=== PATIENT | female | born 1940 | race Caucasian/White ===

== ENCOUNTER 2018-07-11 13:07 | Observation (INO) | payer MEDICARE, OTHER ==
[~2018-07-11 13:07] MED LIST: PHENYLEPHRINE HCL INJ/PF 10 MG/1 ML SDV ONE
[2018-07-11] MEDS ORDERED: ASPIRIN 81 MG TABLET, CHEWABLE PO ONE (13:53)
[2018-07-11] MEDS ORDERED: MAG HYDROX/AL HYDROX/SIMETH SUSP 30 ML UDCUP PO ONE (13:55)
[2018-07-11] MEDS ORDERED: METOCLOPRAMIDE HCL ORAL SOLN 10 MG/10 ML UDCUP PO ONE (13:55)
[2018-07-11] MEDS ORDERED: LIDOCAINE 2% VISCOUS SOLN 20 ML UDCUP PO ONE (13:55)
--- NOTE | 2018-07-11 13:59 | ER Document Report ---
ED Medical Screen (RME) - General Chief Complaint: Abdominal Pain Stated Complaint: ABDOMINAL PAIN Time Seen by Provider: 07/11/18 13:49 Mode of Arrival: Wheelchair Information source: Patient Notes: 78-year-old female presents emergency department with complaints of epigastric abdominal pain that started at 7 AM. She describes it as a sharp and stabbing sensation. No radiation. No alleviating or exacerbating factors. She is having associated nausea, vomiting. She denies any diarrhea, constipation, dysuria, hematuria, melena, hematochezia, fever, chills, cough, shortness of breath, chest pain. Patient has had a hysterectomy. She states that she has a history of hypertension, family history of coronary artery disease and she smokes. I have greeted and performed a rapid initial assessment of this patient. A comprehensive ED assessment and evaluation of the patient, analysis of test results and completion of the medical decision making process will be conducted by additional ED providers. PHYSICAL EXAMINATION: GENERAL: Well-appearing, well-nourished and in no acute distress. HEAD: Atraumatic, normocephalic. EYES: Pupils equal round extraocular movements intact, conjunctiva are normal. ENT: Nares patent NECK: Normal range of motion LUNGS: No respiratory distress Musculoskeletal: Normal range of motion TRAVEL OUTSIDE OF THE [place] IN LAST 30 DAYS: No - Related Data Allergies/Adverse Reactions: No Known Allergies Allergy (Unverified 07/11/18 13:10) Past Medical History - Social History Chew tobacco use (# tins/day): No Frequency of alcohol use: None Drug Abuse: None - Past Medical History Cardiac Medical History: Reports: Hx Hypertension Renal/ Medical History: Denies: Hx Peritoneal Dialysis Psychiatric Medical History: Reports: Hx Depression - anxiety Past Surgical History: Reports: Hx Abdominal Surgery - hernia repair, Hx Hysterectomy Physical Exam - Vital signs Vitals: Temp Pulse Resp BP Pulse Ox 97.6 F 77 20 187/83 H 100 07/11/18 13:13 07/11/18 13:13 07/11/18 13:13 07/11/18 13:13 07/11/18 13:13 Course - Vital Signs Vital signs: Temp Pulse Resp BP Pulse Ox 97.6 F 77 20 187/83 H 100 07/11/18 13:13 07/11/18 13:13 07/11/18 13:13 07/11/18 13:13 07/11/18 13:13
[2018-07-11 14:58] LABS: ABSOLUTE BASOPHILS # (AUTO) 0.1 10^3/uL (0.0-0.2); ABSOLUTE LYMPHOCYTES (AUTO) 1.2 10^3/uL (0.5-4.7); ABSOLUTE MONOCYTES (AUTO) 0.2 10^3/uL (0.1-1.4); ABSOLUTE NEUT (AUTO) 10.8 10^3/uL (1.7-8.2); BASOPHILS % (AUTO) 0.4 % (0-2); EOSINOPHILS % (AUTO) 0.3 % (0-6); HEMATOCRIT 45.2 % (36.0-47.0); HEMOGLOBIN 15.3 g/dL (12.0-15.5); LYMPHOCYTES % (AUTO) 9.7 % (13-45); MEAN CORPUSCULAR HEMOGLOBIN 33.1 pg (27.0-33.4); MEAN CORPUSCULAR HGB CONC 33.9 g/dL (32.0-36.0); MEAN CORPUSCULAR VOLUME 98 fl (80-97); MONOCYTES % (AUTO) 1.9 % (3-13); PLATELET COUNT 314 10^3/uL (150-450); RED BLOOD COUNT 4.63 10^6/uL (3.72-5.28); RED CELL DISTRIBUTION WIDTH 13.7 % (11.5-14.0); SEGMENTED NEUTROPHILS % (AUTO) 87.7 % (42-78); TOTAL CELLS COUNTED % (AUTO) 100 %; WHITE BLOOD COUNT 12.3 10^3/uL (4.0-10.5)
[2018-07-11 15:02] LABS: APPEARANCE,URINE SLIGHTLY-CLOUDY; BILIRUBIN,URINE NEGATIVE (NEGATIVE); COLOR,URINE YELLOW; GLUCOSE, URINE NEGATIVE (NEGATIVE); KETONES,URINE 20 mg/dL (NEGATIVE); LEUKOCYTE ESTERASE,URINE SMALL (NEGATIVE); NITRITE,URINE NEGATIVE (NEGATIVE); PROTEIN,URINE NEGATIVE (NEGATIVE); URINE SPECIFIC GRAVITY 1.021; UROBILINOGEN,URINE NEGATIVE mg/dL (<2.0)
--- NOTE | 2018-07-11 15:12 | ER Document Report ---
ED General - General Mode of Arrival: Wheelchair TRAVEL OUTSIDE OF THE [place] IN LAST 30 DAYS: No <FAYE ALBARRAN - Last Filed: 07/11/18 19:05> <SHIVA CROWDER - Last Filed: 07/11/18 21:36> - General Chief Complaint: Abdominal Pain Stated Complaint: ABDOMINAL PAIN Time Seen by Provider: 07/11/18 13:49 Primary Care Provider: GIUSEPPE GENAO PA-C [Primary Care Provider] - Follow up as needed Notes: RME Provider note: 78-year-old female presents emergency department with complaints of epigastric abdominal pain that started at 7 AM. She describes it as a sharp and stabbing sensation. No radiation. No alleviating or exacerbating factors. She is having associated nausea, vomiting. She denies any diarrhea, constipation, dy suria, hematuria, melena, hematochezia, fever, chills, cough, shortness of breath, chest pain. Patient has had a hysterectomy. She states that she has a history of hypertension, family history of coronary artery disease and she smokes. MY HPI: Patient has been treated in the emergency department with a GI cocktail. Upon my HPI patient states she is currently pain-free. When I asked her about the pain she did have she states it was more periumbilical and started this morning. States she vomited x4. Patient states that her last bowel movement was yesterday. States sometimes she does have history of constipation. Patient does denying any fever, upper respiratory symptoms at this time. Past medical history: Hypertension Medications: Lisinopril, citalopram Allergies: Aspirin Surgical history: Hysterectomy, inguinal hernia repair 2014 (FAYE ALBARRAN) - Related Data Allergies/Adverse Reactions: No Known Allergies Allergy (Verified 07/11/18 14:47) Past Medical History - General Information source: Patient - Social History Smoking Status: Current Every Day Smoker Chew tobacco use (# tins/day): No Frequency of alcohol use: None Drug Abuse: None Family History: Reviewed & Not Pertinent Patient has suicidal ideation: No Patient has homicidal ideation: No - Past Medical History Cardiac Medical History: Reports: Hx Hypertension Renal/ Medical History: Denies: Hx Peritoneal Dialysis Psychiatric Medical History: Reports: Hx Depression - anxiety Past Surgical History: Reports: Hx Abdominal Surgery - hernia repair, Hx Hysterectomy <ABIMAEL ALBARRANAIDELUKE - Last Filed: 07/11/18 19:05> Review of Systems - Review of Systems Constitutional: No symptoms reported EENT: No symptoms reported Cardiovascular: No symptoms reported Respiratory: No symptoms reported Gastrointestinal: See HPI Genitourinary: denies: Burning, Dysuria, Frequency Female Genitourinary: No symptoms reported Musculoskeletal: No symptoms reported Skin: No symptoms reported Hematologic/Lymphatic: No symptoms reported Neurological/Psychological: No symptoms reported <ABDI ALBARRANALMALUKE - Last Filed: 07/11/18 19:05> Physical Exam <ABIMAEL ALBARRANAIDELUKE - Last Filed: 07/11/18 19:05> - Vital signs Vitals: Temp Pulse Resp BP Pulse Ox 97.6 F 77 20 187/83 H 100 07/11/18 13:13 07/11/18 13:13 07/11/18 13:13 07/11/18 13:13 07/11/18 13:13 - Notes Notes: GENERAL: Alert, interacts well. No acute distress. HEAD: Normocephalic, atraumatic. EYES: Pupils equal, round, and reactive to light. Extraocular movements intact. ENT: Oral mucosa moist, tongue midline. NECK: Full range of motion. Supple. Trachea midline. LUNGS: Clear to auscultation bilaterally, no wheezes, rales, or rhonchi. No respiratory distress. HEART: Regular rate and rhythm. No murmur ABDOMEN: Soft, Non-distended. Bowel sounds present in all 4 quadrants. No Smalls sign noted, patient does have McBurney's point tenderness noted on examination. Patient also has some generalized periumbilical abdominal pain upon deep palpation. EXTREMITIES: Moves all 4 extremities spontaneously. No edema, normal radial and dorsalis pedis pulses bilaterally. No cyanosis. BACK: no cervical, thoracic, lumbar midline tenderness. No saddle anesthesia, normal distal neurovascular exam. No CVA tenderness noted bilaterally NEUROLOGICAL: Alert and oriented x3. Normal speech. cranial nerves II through XII grossly intact PSYCH: Normal affect, normal mood. SKIN: Warm, dry, normal turgor. No rashes or lesions noted. (FAYE ALBARRAN) Course - Laboratory Result Diagrams: 07/11/18 14:31 07/11/18 14:31 <FAYE ALBARRAN - Last Filed: 07/11/18 19:05> - Laboratory Result Diagrams: 07/11/18 14:31 07/11/18 14:31 <SHIVA CROWDER - Last Filed: 07/11/18 21:36> - Re-evaluation Re-evalutation: 07/11/18 15:14 Patient's CBC does show leukocytosis of 12.3 could be due to her vomiting. Patient's urine shows no signs of infection but does have hematuria. Patient CMP has not been resulted yet. Patient states without any touching her abdomen her pain is completely gone. Patient states she does have increased pain when I palpate periumbilical into the right lower quadrant. Due to this I will order a CT with oral and IV contrast. Currently awaiting CMP results and CT results. 07/11/18 19:05 Patient's CMP shows no signs of electrolyte abnormalities and her urine shows no signs of infection. Patient recently got her CT but we are awaiting official results. Patient has no longer vomited since Zofran administration in the emergency department, continues to be pain-free unless palpated her right lower quadrant. Patient care and report transferred to Shiva LOVE at bedside. (FAYE ALBARRAN) 07/11/18 19:40 CT of the abdomen and pelvis with IV and oral contrast indicating a right inguinal hernia with incarceration and obstruction of the small bowel. Patient does have tenderness in the general abdomen, slightly worse on the right, however her abdomen is not rigid and she is nontoxic in appearance. I am told that she did vomit contrast after she started drinking it. I called and spoke with Dr. Pacheco, general surgery, he is on his way to evaluate the patient. He recommends continuing NPO and giving additional IV fluids. I discussed with patient and family at bedside. (SHIVA CROWDER) - Vital Signs Vital signs: Temp Pulse Resp BP Pulse Ox 98.0 F 77 20 187/93 H 96 07/11/18 19:00 07/11/18 13:13 07/11/18 21:05 07/11/18 21:05 07/11/18 21:05 - Laboratory Laboratory results interpreted by me: 07/11/18 07/11/18 07/11/18 14:31 14:31 14:31 WBC 12.3 H MCV 98 H Seg Neutrophils % 87.7 H Lymphocytes % 9.7 L Monocytes % 1.9 L Absolute Neutrophils 10.8 H AST 39 H Urine Ketones 20 H Urine Blood MODERATE H Ur Leukocyte Esterase SMALL H Discharge <FAYE ALBARRAN - Last Filed: 07/11/18 19:05> - Discharge Admitting Provider: Surgicalist Unit Admitted: OR <SHVIA CROWDER - Last Filed: 07/11/18 21:36> - Discharge Clinical Impression: Incarcerated inguinal hernia Vomiting Qualifiers: Vomiting type: unspecified Vomiting Intractability: unspecified Nausea presence: with nausea Qualified Code(s): R11.2 - Nausea with vomiting, unsp ecified Abdominal pain Qualifiers: Abdominal location: generalized Qualified Code(s): R10.84 - Generalized abdominal pain Condition: Serious Disposition: ADMITTED INPATIENT Referrals: GIUSEPPE GENAO PA-C [Primary Care Provider] - Follow up as needed
--- NOTE | 2018-07-11 15:16 | RADIOLOGY REPORT (SQ) ---
EXAM DESCRIPTION: CHEST SINGLE VIEW COMPLETED DATE/TIME: 07/11/2018 2:53 pm REASON FOR STUDY: chest pain COMPARISON: None. NUMBER OF VIEWS: One view. TECHNIQUE: Single frontal radiographic view of the chest acquired. LIMITATIONS: None. FINDINGS: LUNGS AND PLEURA: No opacities, masses or pneumothorax. No pleural effusion. Attenuated bl ood vessels and flattened sergio-diaphragms. MEDIASTINUM AND HILAR STRUCTURES: No masses. Contour normal. HEART AND VASCULAR STRUCTURES: Heart normal in size. Normal vasculature. BONES: No acute findings. HARDWARE: None in the chest. OTHER: No other significant finding. IMPRESSION: COPD. NO ACUTE RADIOGRAPHIC FINDING IN THE CHEST. TECHNICAL DOCUMENTATION: JOB ID: [id number] [employer]- All Rights Reserved Reading location - IP/workstation name: [email or web address]
[2018-07-11 15:19] LABS: ALANINE AMINOTRANSFERASE 21 U/L (9-52); ALKALINE PHOSPHATASE 83 U/L (38-126); ANION GAP 9 (5-19); ASPARTATE AMINO TRANSFERASE 39 U/L (14-36); BILIRUBIN,DIRECT 0.3 mg/dL (0.0-0.4); BILIRUBIN,TOTAL 0.6 mg/dL (0.2-1.3); BLOOD UREA NITROGEN 15 mg/dL (7-20); CALCIUM 9.5 mg/dL (8.4-10.2); CARBON DIOXIDE 30 mmol/L (22-30); CHLORIDE 101 mmol/L (98-107); GLUCOSE 104 mg/dL (75-110); LIPASE 25.6 U/L (23-300); POTASSIUM 4.8 mmol/L (3.6-5.0); SODIUM 140.1 mmol/L (137-145); TOTAL PROTEIN 8.1 g/dL (6.3-8.2)
[2018-07-11] MEDS ORDERED: ONDANSETRON HCL INJ/PF 4 MG/2 ML SDV IV ONE (16:47)
--- NOTE | 2018-07-11 19:32 | RADIOLOGY REPORT (SQ) ---
EXAM DESCRIPTION: CT ABD/PELVIS WITH IV ORAL COMPLETED DATE/TIME: 07/11/2018 6:46 pm REASON FOR STUDY: RLQ pain, periumbilical pain COMPARISON: None. TECHNIQUE: CT scan of the abdomen and pelvis performed using helical scanning technique with dynamic intravenous contrast injection. Patient drank oral contrast. Images reviewed with lung, soft tissue , and bone windows. Reconstructed coronal and sagittal MPR images reviewed. Delayed images for evalua tion of the urinary system also acquired. All images stored on PACS. All CT scanners at this facility use dose modulation, iterative reconstruction, and/or weight based d osing when appropriate to reduce radiation dose to as low as reasonably achievable (ALARA). [facility]: Dose Right [facility]: CareDose [facility]: Dose Right [facility]: Teradose 4D [facility]: [employer] CONTRAST TYPE AND DOSE: contrast/concentration: Isovue 350.00 mg/ml; Total Contrast Delivered: 55.0 ml; Total Saline Delivered: 65.0 ml RENAL FUNCTION: Creatinine 0.7 RADIATION DOSE: CT Rad equipment meets quality standard of care and radiation dose reduction techniq ues were employed. CTDIvol: 4.8 - 4.9 mGy. DLP: 412 mGy-cm.. LIMITATIONS: None. FINDINGS: In the right lower quadrant along the inguinal canal, an incarcerated hernia is present co ntaining an obstructed loop of small bowel. More proximal small bowel obstruction is present with di lated stomach and proximal and mid small bowel loops. This report was called to Dr. Zavala [facility]. LOWER CHEST: No significant findings. No nodules or infiltrates. LIVER: Normal size. No masses. No dilated ducts. SPLEEN: Normal size. No focal lesions. PANCREAS: No masses. No significant calcifications. No adjacent inflammation or peripancreatic fluid collections. Pancreatic duct not dilated. GALLBLADDER: No identified stones by CT criteria. No inflammatory changes to suggest cholecystitis. ADRENAL GLANDS: No significant masses or asymmetry. RIGHT KIDNEY AND URETER: No solid masses. No significant calcifications. No hydronephrosis or hyd roureter. LEFT KIDNEY AND URETER: No solid masses. No significant calcifications. No hydronephrosis or hydr oureter. AORTA AND VESSELS: No aneurysm. No dissection. Heavily calcified visceral artery origins RETROPERITONEUM: No retroperitoneal adenopathy, hemorrhage or masses. BOWEL AND PERITONEAL CAVITY: Incarcerated right inguinal hernia with more proximal small bowel obstru ction. This is best shown on coronal images 10-19. Scattered colonic diverticuli without CT signs o f acute diverticulitis APPENDIX: Normal. PELVIS: No mass. No free fluid. Normal bladder. Post hysterectomy ABDOMINAL WALL: Right inguinal hernia with incarcerated loop of small bowel. BONES: No significant or acute findings. OTHER: No other significant finding. IMPRESSION: Right inguinal hernia with incarcerated small bowel loop causing small bowel obstruction . Report called to the emergency room attending physician. TECHNICAL DOCUMENTATION: JOB ID: [id number] Quality ID # [id number]: Final reports with documentation of one or more dose reduction techniques (e.g., Au tomated exposure control, adjustment of the mA and/or kV according to patient size, use of iterative reconstruction technique) 2010 [employer]- All Rights Reserved Reading location - IP/workstation name: [email or web address]
[2018-07-11] MEDS ORDERED: NORMAL SALINE 1000 ML 1,000 ML IV ONE (19:39)
[2018-07-11] MEDS ORDERED: NORMAL SALINE 1000 ML 1,000 ML IV PRN (19:41)
--- NOTE | 2018-07-11 21:41 | PDOC H&P ---
History of Present Illness Admission Date/PCP: GIUSEPPE GENAO PA-C Patient complains of: Abdominal pain nausea vomiting History of Present Illness: DEB GILL is a 78 year old female Seen in the emergency department via ground rescue complaining of abdominal pain periumbilical nausea and vomiting. Patient was given a GI cocktail with clinical improvement. She then started having nausea and vomiting again had a CT scan of the abdomen pelvis which showed an incarcerated right inguinal hernia. The patient then had a physical examination which confirmed an incarcerated, reducible right inguinal hernia. Surgery was consulted she was advised admission for definitive management According the patient she has had a right inguinal hernia for months. This was diagnosed by KATE Brownlee, in [place], [place]; she has a history of previous operative repair right inguinal hernia in [facility]. CT scan of the abdomen and pelvis shows a right inguinal hernia, no free air, no free fluid, atherosclerotic disease, possible small bowel obstruction secondary to hernia. Past Medical History Past Medical History: Hypertension, emphysema, smoking abuse Cardiac Medical History: Reports: Hypertension Psychiatric Medical History: Reports: Depression - anxiety Past Surgical History Past Surgical History: Total abdominal hysterectomy; right inguinal hernia repair Past Surgical History: Reports: Hysterectomy Social History Smoking Status: Current Every Day Smoker Frequency of Alcohol Use: None Hx Recreational Drug Use: No Drugs: None Family History Family History: Reviewed & Not Pertinent Parental Family History Reviewed: Yes Children Family History Reviewed: Yes Sibling(s) Family History Reviewed.: Yes Medication/Allergy Home Medications: Aspirin [Ecotrin] 81 mg PO MOWE@1000 07/11/18 Citalopram Hydrobromide [Celexa 40 mg Tablet] 40 mg PO DAILY 07/11/18 Ramipril [Altace 10 mg Capsule] 10 mg PO DAILY 07/11/18 Allergies/Adverse Reactions: No Known Allergies Allergy (Verified 07/11/18 14:47) Review of Systems Constitutional: PRESENT: as per HPI Eyes: ABSENT: visual disturbances Ears: ABSENT: hearing changes Cardiovascular: PRESENT: as per HPI Gastrointestinal: PRESENT: as per HPI Genitourinary: PRESENT: as per HPI Musculoskeletal: ABSENT: joint swelling Integumentary: ABSENT: rash, wounds Neurological: ABSENT: abnormal gait, abnormal speech, confusion, dizziness, focal weakness, syncope Physical Exam Vital Signs: Temp Pulse Resp BP Pulse Ox 98.0 F 77 20 187/93 H 96 07/11/18 19:00 07/11/18 13:13 07/11/18 21:05 07/11/18 21:05 07/11/18 21:05 Intake & Output 07/10/18 07/11/18 07/12/18 06:59 06:59 06:59 Intake Total 1999 Balance 1999 Weight 47.7 kg General appearance: PRESENT: no acute distress Head exam: PRESENT: normocephalic Mouth exam: PRESENT: dry mucosa Neck exam: PRESENT: full ROM Respiratory exam: PRESENT: rales Cardiovascular exam: PRESENT: RRR Pulses: PRESENT: normal carotid pulses, normal radial pulses, normal femoral pulses GI/Abdominal exam: PRESENT: other - Soft nontender no peritoneal signs no rigidity Right inguinal hernia, irreducible after prolonged compression by Dr. Pacheco at bedside. Overlying skin viable Psychiatric exam: PRESENT: anxious Results Laboratory Results: 07/11/18 14:31 07/11/18 14:31 07/11/18 07/11/18 07/11/18 14:31 14:31 14:31 WBC 12.3 H RBC 4.63 Hgb 15.3 Hct 45.2 MCV 98 H MCH 33.1 MCHC 33.9 RDW 13.7 Plt Count 314 Seg Neutrophils % 87.7 H Lymphocytes % 9.7 L Monocytes % 1.9 L Eosinophils % 0.3 Basophils % 0.4 Absolute Neutrophils 10.8 H Absolute Lymphocytes 1.2 Absolute Monocytes 0.2 Absolute Eosinophils 0.0 Absolute Basophils 0.1 Sodium 140.1 Potassium 4.8 Chloride 101 Carbon Dioxide 30 Anion Gap 9 BUN 15 Creatinine 0.65 Est GFR ( Amer) > 60 Est GFR (Non-Af Amer) > 60 Glucose 104 Calcium 9.5 Total Bilirubin 0.6 AST 39 H ALT 21 Alkaline Phosphatase 83 Total Protein 8.1 Albumin 5.0 Lipase 25.6 Urine Color YELLOW Urine Appearance SLIGHTLY-CLOUDY Urine pH 6.0 Ur Specific [place] 1.021 Urine Protein NEGATIVE Urine Glucose (UA) NEGATIVE Urine Ketones 20 H Urine Blood MODERATE H Urine Nitrite NEGATIVE Ur Leukocyte Esterase SMALL H Urine WBC (Auto) 5 Urine RBC (Auto) 28 07/11/18 07/11/18 14:31 18:45 Troponin I < 0.012 0.048 Impressions: Abdomen/Pelvis CT 07/11/18 00:00 IMPRESSION: Right inguinal hernia with incarcerated small bowel loop causing small bowel obstruction. Report called to the emergency room attending physician. Chest X-Ray 07/11/18 13:54 IMPRESSION: COPD. NO ACUTE RADIOGRAPHIC FINDING IN THE CHEST. Assessment & Plan - Diagnosis (1) Incarcerated inguinal hernia Is this a current diagnosis for this admission?: Yes Plan: Impression: Symptomatic, partially obstructing incarcerated right inguinal hernia; unrelieved by attempts at bedside reduction; warrants operative repair Recommendations: 1. Admit, IV fluids, n.p.o., taken to the operating room for right inguinal exploration, operative repair, possible small bowel resection, possible exploratory laparotomy. 2. Patient at risk for postoperative respiratory issues due to COPD, chronic smoking abuse. (2) COPD (chronic obstructive pulmonary disease) Is this a current diagnosis for this admission?: Yes (3) Smoker Is this a current diagnosis for this admission?: Yes (4) Abdominal pain Qualifiers: Abdominal location: generalized Qualified Code(s): R10.84 - Generalized abdominal pain Is this a current diagnosis for this admission?: Yes - Time Time Spent: 30 to 50 Minutes Critical Time spent with patient: Less than 15 minutes Medications reviewed and adjusted accordingly: Yes Anticipated discharge: Home - Inpatient Certification Based on my medical assessment, after consideration of the patient's comorbidities, presenting symptoms, or acuity I expect that the services needed warrant INPATIENT care.: Yes Medical Necessity: Need For IV Fluids, Need for Pain Control, Need for IV Antibiotics, Need for Surgery
[2018-07-11] MEDS ORDERED: MIDAZOLAM 2 MG/2 ML INJ ONE (21:54)
[2018-07-11] MEDS ORDERED: DEXAMETHASONE SOD PHOSPHATE INJ 4 MG/1 ML VIAL ONE (21:54)
[2018-07-11] MEDS ORDERED: ONDANSETRON HCL INJ/PF 4 MG/2 ML SDV ONE (21:54)
[2018-07-11] MEDS ORDERED: EPHEDRINE SULFATE INJ 50 MG/1 ML AMPULE ONE (21:54)
[2018-07-11] MEDS ORDERED: FENTANYL CITRATE INJ/PF 100 MCG/2 ML AMPUL ONE (21:54)
[2018-07-11] MEDS ORDERED: PROPOFOL INJ 200 MG/20 ML VIAL IV ONE (21:55)
[2018-07-11] MEDS ORDERED: ACETAMINOPHEN 1,000 MG/100 ML RTUPB IV ONE (21:55)
[2018-07-11] MEDS ORDERED: MORPHINE SULFATE 10 MG/ML INJ ONE (21:55)
[2018-07-11] MEDS ORDERED: BUPIVACAINE INJ/PF LIPOSOME/PF 266 MG/20 ML SDV ONE (22:25)
[2018-07-11] MEDS ORDERED: BUPIVACAINE HCL 0.25 % INJ/PF (2.5 MG/1 ML) 30 ML VIAL ONE (22:25)
[2018-07-11] MEDS: CEFAZOLIN 1 GM/D5W RTU 1 GM/50 ML RTUPB IV SCH (22:31)
[2018-07-11] MEDS: RINGERS SOLUTION,LACTATED 1,000 ML IV PRN (22:31)
--- NOTE | 2018-07-11 23:23 | EKG REPORT ---
SEVERITY:- NORMAL ECG - SINUS RHYTHM : Confirmed by: Adela Bradley MD 11-Jul-2018 23:22:29
[2018-07-11] MEDS ORDERED: DIPHENHYDRAMINE HCL 50 MG/ML VIAL IV PRN (23:29)
[2018-07-11] MEDS ORDERED: PROMETHAZINE HCL INJ 25 MG/1 ML VIAL IV PRN ×2 (23:29)
[2018-07-11] MEDS ORDERED: MEPERIDINE HCL/PF INJ 25 MG/1 ML DISP.SYRIN IV PRN (23:29)
[2018-07-11] MEDS ORDERED: ONDANSETRON HCL INJ/PF 4 MG/2 ML SDV IV PRN (23:29)
[2018-07-11] MEDS ORDERED: OXYCODONE-ACETAMINOPHEN 5-325 MG TABLET PO PRN ×2 (23:29)
[2018-07-11] MEDS ORDERED: MORPHINE SULFATE 10 MG/ML INJ IV PRN (23:29)
[2018-07-11] MEDS ORDERED: FENTANYL CITRATE INJ/PF 100 MCG/2 ML AMPUL IV PRN ×3 (23:29)
--- NOTE | 2018-07-12 00:19 | Operative Report ---
Operative Report DATE OF SURGERY: 07/12/18 PREOPERATIVE DIAGNOSIS: Incarcerated right inguinal hernia POSTOPERATIVE DIAGNOSIS: Incarcerated right femoral hernia with ischemic loop of small bowel OPERATION: 1. Operative reduction of right incarcerated femoral hernia. 2. Repair of right common femoral vein. 3. Repair of right femoral hernia with medium Bard PerFix plug SURGEON: BOO OROZCO ANESTHESIA: Spinal TISSUE REMOVED OR ALTERED: None COMPLICATIONS: See below INTRAOPERATIVE FINDINGS: See below PROCEDURE: Patient was taken to the preop holding area the main operating room where spinal anesthesia was [place]. Patient is placed in the right side down left side up position initially then supine. The abdomen and groins were prepped and draped in sterile fashion. Surgical plan surgical timeout conducted. The skin overlying the nonreducible hernia was anesthetized with 1% plain lidocaine. Approximately 6 cm incision was made overlying the palpable mass. Subcutaneous tissue was divided with scissors. We got around the mass circumferentially. The mass was essentially an incarcerated loop of ischemic small bowel. I opened up the fascia medially and laterally. While opening of the fascia laterally, I immediately got into venous bleeding. Direct pressure was held, and the hernia contents reduced into the peritoneal cavity. The incarcerated sac peritoneal lining had been opened releasing the loop of small bowel into the peritoneal cavity. We extended our incision by approximately centimeter got adequate exposure and identified the source of the venous oozing which was a rent in the right common femoral vein. We applied vascular clamps underneath the vein, and closed the vein longitudinally with 4-0 Prolene suture. This controlled the hemorrhage. The right common femoral artery was in good condition. We observe the repair for some period of time and was felt to be stable. I now brought the redundant peritoneal lining into the open wound, and then explored the peritoneal cavity using retractors. I brought the loop of small bowel that the been incarcerated and it retracted into the peritoneal cavity back out of the peritoneal cavity. It had an area of hemorrhagic injection in the wall. It was peristalsing. We warmed it up and observed it for approximately 20 minutes and felt that it was a viable and worth retaining. I did not feel a bowel resection was necessary. The loop of bowel was returned the peritoneal cavity I closed the peritoneum with a pursestring 2-0 Vicryl suture, amputating the redundant portions of the hernia sac. We now had the right femoral hernia defect exposed. We placed a inverted Bard PerFix plug into the defect and sewed it to the surrounding fascia medially anteriorly posteriorly laterally with 2-0 PDS suture. We were careful not to compromise the femoral artery the femoral vein. I now closed the Darrell's fascia overlying the prosthesis, the skin with 3-0 Vicryl and Dermabond glue. Compression dressing applied. Patient taught procedure well. She was taken recovery in stable condition.
[2018-07-12] MEDS ORDERED: ONDANSETRON HCL INJ/PF 4 MG/2 ML SDV IV PRN (00:20)
[2018-07-12] MEDS ORDERED: KETOROLAC TROMETHAMINE INJ/PF 30 MG/1 ML SDV IV PRN (00:20)
[2018-07-12] MEDS ORDERED: KETOROLAC TROMETHAMINE 10 MG TABLET PO PRN (00:20)
[2018-07-12] MEDS: RINGERS SOLUTION,LACTATED 1,000 ML IV PRN (03:02)
[2018-07-12] MEDS: CEFAZOLIN 1 GM/D5W RTU 1 GM/50 ML RTUPB IV SCH ×2 (05:03→13:38)
--- NOTE | 2018-07-12 18:14 | PDOC DISCHARGE SUMMARY ---
General - Admit/Disc Date/PCP Admission Date/Primary Care Provider: 07/11/18 21:49 GIUSEPPE GENAO PA-C Discharge Date: 07/12/18 - Discharge Diagnosis (1) Incarcerated femoral hernia Is this a current diagnosis for this admission?: Yes - Additional Information Resuscitation Status: Full Code Discharge Diet: As Tolerated Discharge Activity: No Lifting Over 10 Pounds Home Medications: Aspirin [Ecotrin] 81 mg PO MOWE@1000 07/11/18 Citalopram Hydrobromide [Celexa 40 mg Tablet] 40 mg PO DAILY 07/11/18 Ramipril [Altace 10 mg Capsule] 10 mg PO DAILY 07/11/18 History of Present Illness History of Present Illness: DEB GILL is a 78 year old female with an incarcerated femoral hernia. She presented to the hospital and was taken to the operating room for definitive surgical care. Hospital Course Hospital Course: The patient was taken to the operating room on 07/11/2018 where open femoral hernia repair was undertaken. The patient did very well from this operation. She began ambulating, tolerating a diet, and by postoperative day 1 her pain was controlled well with oral medications. At this time it was felt that the patient had reached maximal hospital benefit and was fit for discharge. Physical Exam Vital Signs: Temp Pulse Resp BP Pulse Ox 99.3 F 91 18 115/57 L 99 07/12/18 15:32 07/12/18 15:32 07/12/18 15:32 07/12/18 15:32 07/12/18 15:32 Intake & Output 07/11/18 07/12/18 07/13/18 06:59 06:59 06:59 Intake Total 4928 50 Output Total 600 Balance 4328 50 Weight 54.4 kg Results Laboratory Results: 07/11/18 14:31 07/11/18 14:31 07/11/18 21:17 Lactic Acid 1.4 07/11/18 14:31 Clean Catch Midstream Urine Culture - Final Mixed Urogenital Suzanne 07/11/18 07/11/18 14:31 18:45 Troponin I < 0.012 0.048 Impressions: Abdomen/Pelvis CT 07/11/18 00:00 IMPRESSION: Right inguinal hernia with incarcerated small bowel loop causing s mall bowel obstruction. Report called to the emergency room attending physician. Chest X-Ray 07/11/18 13:54 IMPRESSION: COPD. NO ACUTE RADIOGRAPHIC FINDING IN THE CHEST. Qualifiers - * PATIENT BEING DISCHARGED WITH ANY OF THE FOLLOWING DIAGNOSIS: No Plan Discharge Plan: Discharge home. Diet as tolerated. Activity: No lifting greater than 10 pounds x 6 weeks. Follow-up with [facility] in 7-10 days. Gibson 10/325 mg p.o. every 6 hours as needed for pain. Okay to shower tomorrow. No tub baths or swimming pools times 2 weeks. Time Spent: Less than 30 Minutes
[2018-07-12 18:29] VITALS: BP 105/44
== END 2018-07-12 19:26 | disposition home or self-care (01) ==
LOC: ER 13:07 → EH 21:49 → INTOOBSV 21:49 → 3S 07-12 01:20
PROVIDERS: ATTEND Surgery
PROC: 0YQ70ZZ Repair Right Femoral Region, Open Approach (ICD-10-PCS; principal; 2018-07-12)
PROC: 06QM0ZZ Repair Right Femoral Vein, Open Approach (ICD-10-PCS; 2018-07-12)
DX: K41.30 Unilateral femoral hernia, with obstruction, without gangrene, not specified as recurrent (principal); I97.51 Accidental puncture and laceration of a circulatory system organ or structure during a circulatory system procedure; Y83.8 Other surgical procedures as the cause of abnormal reaction of the patient, or of later complication, without mention of misadventure at the time of the procedure; I25.10 Atherosclerotic heart disease of native coronary artery without angina pectoris; J44.9 Chronic obstructive pulmonary disease, unspecified; F17.200 Nicotine dependence, unspecified, uncomplicated; R10.84 Generalized abdominal pain; I10 Essential (primary) hypertension; R31.9 Hematuria, unspecified; Z90.710 Acquired absence of both cervix and uterus; Z79.82 Long term (current) use of aspirin; Z79.899 Other long term (current) drug therapy; Z98.890 Other specified postprocedural states
CPT/HCPCS: 93005; 99285; 96361; 96374; 36415; 87086; 83605; 83690; 85025; 80053; 81001; 84484; 71045; 74177; 93010; 49553; 35226; C1781; J2250; J0690 ×2; J1100; J3490 ×2; J3010; J1885; A9270; J2370; J2405; J7030; J7120 ×2; J2704; J0131; 830; C9290; J2270

== ENCOUNTER 2018-07-28 23:32 | Observation (INO) | payer MEDICARE, OTHER ==
[2018-07-29] MEDS ORDERED: MORPHINE SULFATE 10 MG/ML INJ IV ONE (00:17)
[2018-07-29] MEDS ORDERED: ONDANSETRON HCL INJ/PF 4 MG/2 ML SDV IV ONE (00:17)
[2018-07-29] MEDS ORDERED: NORMAL SALINE 500 ML IV ONE ×2 (00:17→01:02)
--- NOTE | 2018-07-29 00:21 | ER Document Report ---
ED GI/ - General Chief Complaint: Lower Abdominal Pain Stated Complaint: ABDOMINAL PAIN Time Seen by Provider: 07/29/18 00:06 Notes: Patient is a 78-year-old female, status post right incarcerated inguinal hernia repair on 07/11/[address] Pacheco, that comes to the emergency department for chief complaint of mid to lower abdominal pain and vomiting. She states that the pain was sharp and caused her to vomit about 6-7 times tonight, she was brought to the emergency department by her daughter. Patient states she actually feels fine now. She states that he had a similar episode last night. She denies fever/chills, she states her wound is healed nicely. She is medicated for hypertension and depression, she has a current umbilical hernia, she is a smoker, she denies any medical history otherwise, daughter denies medical history otherwise. TRAVEL OUTSIDE OF THE [place] IN LAST 30 DAYS: No - Related Data Allergies/Adverse Reactions: No Known Allergies Allergy (Verified 07/28/18 23:35) Past Medical History - General Information source: Patient - Social History Smoking Status: Current Every Day Smoker Smoking Education Provided: Yes - <3 min Frequency of alcohol use: None Drug Abuse: None Lives with: Family Family History: Reviewed & Not Pertinent - Past Medical History Cardiac Medical History: Reports: Hx Hypertension Renal/ Medical History: Denies: Hx Peritoneal Dialysis Psychiatric Medical History: Reports: Hx Depression Past Surgical History: Reports: Hx Abdominal Surgery - hernia repair, Hx Hysterectomy - Immunizations Immunizations up to date: Yes Hx Diphtheria, Pertussis, Tetanus Vaccination: Yes Review of Systems - Review of Systems Constitutional: No symptoms reported EENT: No symptoms reported Cardiovascular: No symptoms reported Respiratory: No symptoms reported Gastrointestinal: See HPI Genitourinary: No symptoms reported Female Genitourinary: No symptoms reported Musculoskeletal: No symptoms reported Skin: No symptoms reported Hematologic/Lymphatic: No symptoms reported Neurological/Psychological: No symptoms reported Physical Exam - Vital signs Vitals: Temp Pulse Resp BP Pulse Ox 97.4 F 84 20 148/63 H 99 07/28/18 23:38 07/28/18 23:38 07/28/18 23:38 07/28/18 23:38 07/28/18 23:38 - Notes Notes: GENERAL: Alert, interacts well. No acute distress. HEAD: Normocephalic, atraumatic. EYES: Pupils equal, round, and reactive to light. Extraocular movements intact. ENT: Oral mucosa moist, tongue midline. Oropharynx unremarkable. Airway patent. Nares patent, no nasal septal hematoma, TM's intact. NECK: Full range of motion. Supple. Trachea midline. LUNGS: Clear to auscultation bilaterally, no wheezes, rales, or rhonchi. No respiratory distress. HEART: Regular rate and rhythm. No murmur ABDOMEN: Incision in the right inguinal area, no surrounding erythema, tendernes s, swelling, wound has approximated and healed well. No appreciated abdominal tenderness on exam, no swelling or rigidity, bowel sounds present. GENITOURINARY: No external concerning findings. EXTREMITIES: Moves all 4 extremities spontaneously. No edema, normal radial and dorsalis pedis pulses bilaterally. No cyanosis. BACK: no cervical, thoracic, lumbar midline tenderness. No saddle anesthesia, normal distal neurovascular exam. NEUROLOGICAL: Alert and oriented x3. Normal speech. [cranial nerves II through XII grossly intact]. PSYCH: Normal affect, normal mood. SKIN: Warm, dry, normal turgor. No rashes or lesions noted. Course - Re-evaluation Re-evalutation: Patient reporting she is only mildly uncomfortable on my evaluation. After 2 mg of morphine and 4 mg of Zofran symptoms completely resolved. Given IV fluids. Abdominal exam is somewhat benign, however patient had a benign abdominal exam last time when she had the incarcerated inguinal hernia (I did see her at that time). CBC shows leukocytosis at 13,000 with elevation of neutrophils, nonspecific given patient's vomiting. Patient is still having bowel movements. Chemistry generally unremarkable. Urinalysis nonspecific. Discussed with patient, CT of the abdomen and pelvis with IV and oral contrast will be performed to rule out acute etiology. CT of the abdomen and pelvis nonspecific. No obvious acute findings. Because of patient's concerning symptoms of severe pain with vomiting 2 nights in a row post surgery I did discuss with Dr. Evans, discussed with Dr. De Leon, he states he will evaluate the patient. Dr. De Leon admitted the patient to surgical observation. - Vital Signs Vital signs: Temp Pulse Resp BP Pulse Ox 98.2 F 90 21 H 148/78 H 91 L 07/29/18 05:27 07/29/18 05:27 07/29/18 05:27 07/29/18 05:27 07/29/18 05:27 - Laboratory Result Diagrams: 07/29/18 00:36 07/29/18 00:36 Laboratory results interpreted by me: 07/29/18 07/29/18 07/29/18 00:36 00:36 00:40 WBC 13.8 H MCV 98 H MCH 33.6 H Seg Neutrophils % 82.8 H Lymphocytes % 10.5 L Absolute Neutrophils 11.4 H Glucose 112 H Urine Protein 30 H Urine Ketones 20 H Urine Blood MODERATE H Urine Urobilinogen 2.0 H Ur Leukocyte Esterase TRACE H Discharge - Discharge Clinical Impression: Abdominal pain Qualifiers: Abdominal location: generalized Qualified Code(s): R10.84 - Generalized abdominal pain Vomiting Qualifiers: Vomiting type: unspecified Vomiting Intractability: unspecified Nausea presence: with nausea Qualified Code(s): R11.2 - Nausea with vomiting, unspecified Condition: Stable Disposition: ADMITTED OBSERVATION Admitting Provider: Surgicalist Unit Admitted: Surgical Floor
[2018-07-29 00:46] LABS: ABSOLUTE BASOPHILS # (AUTO) 0.1 10^3/uL (0.0-0.2); ABSOLUTE EOSINOPHILS # (AUTO) 0.1 10^3/uL (0.0-0.6); ABSOLUTE LYMPHOCYTES (AUTO) 1.4 10^3/uL (0.5-4.7); ABSOLUTE MONOCYTES (AUTO) 0.7 10^3/uL (0.1-1.4); ABSOLUTE NEUT (AUTO) 11.4 10^3/uL (1.7-8.2); BASOPHILS % (AUTO) 0.5 % (0-2); HEMATOCRIT 38.3 % (36.0-47.0); HEMOGLOBIN 13.1 g/dL (12.0-15.5); LYMPHOCYTES % (AUTO) 10.5 % (13-45); MEAN CORPUSCULAR HEMOGLOBIN 33.6 pg (27.0-33.4); MEAN CORPUSCULAR HGB CONC 34.1 g/dL (32.0-36.0); MEAN CORPUSCULAR VOLUME 98 fl (80-97); MONOCYTES % (AUTO) 5.2 % (3-13); PLATELET COUNT 287 10^3/uL (150-450); RED BLOOD COUNT 3.89 10^6/uL (3.72-5.28); SEGMENTED NEUTROPHILS % (AUTO) 82.8 % (42-78); TOTAL CELLS COUNTED % (AUTO) 100 %; WHITE BLOOD COUNT 13.8 10^3/uL (4.0-10.5)
[2018-07-29 00:58] LABS: APPEARANCE,URINE SLIGHTLY-CLOUDY; BILIRUBIN,URINE NEGATIVE (NEGATIVE); COLOR,URINE YELLOW; GLUCOSE, URINE NEGATIVE (NEGATIVE); KETONES,URINE 20 mg/dL (NEGATIVE); LEUKOCYTE ESTERASE,URINE TRACE (NEGATIVE); NITRITE,URINE NEGATIVE (NEGATIVE); PROTEIN,URINE 30 mg/dL (NEGATIVE); URINE SPECIFIC GRAVITY 1.025
[2018-07-29 00:59] LABS: ALANINE AMINOTRANSFERASE 17 U/L (9-52); ALBUMIN 4.1 g/dL (3.5-5.0); ALKALINE PHOSPHATASE 66 U/L (38-126); ANION GAP 10 (5-19); ASPARTATE AMINO TRANSFERASE 18 U/L (14-36); BILIRUBIN,DIRECT 0.3 mg/dL (0.0-0.4); BILIRUBIN,TOTAL 0.4 mg/dL (0.2-1.3); BLOOD UREA NITROGEN 20 mg/dL (7-20); CALCIUM 9.4 mg/dL (8.4-10.2); CARBON DIOXIDE 29 mmol/L (22-30); CHLORIDE 102 mmol/L (98-107); GLUCOSE 112 mg/dL (75-110); LIPASE 31.4 U/L (23-300); POTASSIUM 4.1 mmol/L (3.6-5.0); SODIUM 140.9 mmol/L (137-145); TOTAL PROTEIN 6.7 g/dL (6.3-8.2)
--- NOTE | 2018-07-29 02:39 | RADIOLOGY REPORT (SQ) ---
CLINICAL HISTORY: mid/lower abd pain, vomiting, inguinal hernia repair 2 wks ago. COMPARISON: July 11, 2018. 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 FINDINGS: There are bilateral lower lung pulmonary nodules measuring up to 4 mm. Abdomen: There is perihepatic ascites. There is no biliary dilatation. Gallbladder is normal in appearance. There is a small duodenal diverticulum. The pancreas and spleen are normal in appearance. The adrenal glands and kidneys are unremarkable. Abdominal aorta is normal in course and caliber without aneurysm. There is no free air. There is no retroperitoneal adenopathy.There is a tiny fat-containing midline anterior abdominal wall hernia. More superiorly is a small fluid and fat-containing anterior abdominal wall hernia. Pelvis: There is no bowel obstruction. Urinary bladder is unremarkable. There is no free fluid. There is a postoperative changes of the right inguinal canal. There is small amount of fluid and air within the inguinal canal. Skeleton: There are no acute osseous findings. No suspicious bony lesions. IMPRESSION: Postoperative changes of right inguinal hernia repair with fluid and air within the operative site as well as several borderline lymph nodes.
[2018-07-29] MEDS ORDERED: DEXTROSE 5%-1/2 NORMAL SALINE 500 ML IV PRN (03:55)
--- NOTE | 2018-07-29 03:55 | PDOC H&P ---
History of Present Illness Admission Date/PCP: GIUSEPPE GENAO PA-C Patient complains of: Abdominal pain and nausea and vomiting History of Present Illness: DEB GILL is a 78 year old female status post right femoral hernia repair with mesh for incarcerated right femoral hernia 2 weeks ago. Surgery was complicated by right femoral vein injury that was repaired. Patient initially had some right leg swelling that has improved steadily. She did well postope ratively until 2 nights ago when she noted severe crampy lower abdominal pain followed by nausea and vomiting. The symptoms resolved she was able to sleep and the following morning she felt back to baseline. However last evening she had recurrence of her symptoms with again crampy lower abdominal pain followed by nausea and vomiting. She has been experiencing bowel movements. The last bowel movement was last night that appeared somewhat hard to the patient. No blood per rectum. No hematemesis. No fever. She has minimal right groin discomfort. Currently patient is completely asymptomatic. She denies any abdominal pain. She denies any nausea. Patient is drinking water without diffi culty. Past Medical History Cardiac Medical History: Reports: Hypertension Psychiatric Medical History: Reports: Depression Past Surgical History Past Surgical History: Reports: Hysterectomy Social History Smoking Status: Current Every Day Smoker Frequency of Alcohol Use: Rare Hx Recreational Drug Use: No Drugs: None Hx Prescription Drug Abuse: No Family History Family History: Reviewed & Not Pertinent Parental Family History Reviewed: No Children Family History Reviewed: No Sibling(s) Family History Reviewed.: No Medication/Allergy Home Medications: Aspirin [Ecotrin] 81 mg PO MOWE@1000 07/11/18 Citalopram Hydrobromide [Celexa 40 mg Tablet] 40 mg PO DAILY 07/11/18 Ramipril [Altace 10 mg Capsule] 10 mg PO DAILY 07/11/18 Allergies/Adverse Reactions: No Known Allergies Allergy (Verified 07/28/18 23:35) Physical Exam Vital Signs: Temp Pulse Resp BP Pulse Ox 97.4 F 84 20 148/63 H 99 07/28/18 23:38 07/28/18 23:38 07/28/18 23:38 07/28/18 23:38 07/28/18 23:38 Intake & Output 07/27/18 07/28/18 07/29/18 06:59 06:59 06:59 Weight 48.081 kg General appearance: PRESENT: no acute distress, cooperative Eye exam: PRESENT: conjunctiva pink Neck exam: PRESENT: other - No masses and no tenderness Respiratory exam: PRESENT: clear to auscultation raymond Cardiovascular exam: PRESENT: RRR GI/Abdominal exam: PRESENT: soft - Soft, nondistended, nontender to palpation. Active bowel sounds., other - Right groin wound clean dry and intact with no erythema no significant swelling. Extremities exam: PRESENT: other - Right leg with very subtle diffuse swelling. Patient notes that the swelling has decreased steadily. Neurological exam: PRESENT: alert, awake Psychiatric exam: PRESENT: appropriate affect Skin exam: PRESENT: warm Results Laboratory Results: 07/29/18 00:36 07/29/18 00:36 07/29/18 07/29/18 07/29/18 00:36 00:36 00:36 WBC 13.8 H RBC 3.89 Hgb 13.1 Hct 38.3 MCV 98 H MCH 33.6 H MCHC 34.1 RDW 14.0 Plt Count 287 Seg Neutrophils % 82.8 H Lymphocytes % 10.5 L Monocytes % 5.2 Eosinophils % 1.0 Basophils % 0.5 Absolute Neutrophils 11.4 H Absolute Lymphocytes 1.4 Absolute Monocytes 0.7 Absolute Eosinophils 0.1 Absolute Basophils 0.1 Sodium 140.9 Potassium 4.1 Chloride 102 Carbon Dioxide 29 Anion Gap 10 BUN 20 Creatinine 0.74 Est GFR ( Amer) > 60 Est GFR (Non-Af Amer) > 60 Glucose 112 H Lactic Acid 1.0 Calcium 9.4 Total Bilirubin 0.4 AST 18 ALT 17 Alkaline Phosphatase 66 Total Protein 6.7 Albumin 4.1 Lipase 31.4 Urine Color Urine Appearance Urine pH Ur Specific [place] Urine Protein Urine Glucose (UA) Urine Ketones Urine Blood Urine Nitrite Ur Leukocyte Esterase Urine WBC (Auto) Urine RBC (Auto) 07/29/18 00:40 WBC RBC Hgb Hct MCV MCH MCHC RDW Plt Count Seg Neutrophils % Lymphocytes % Monocytes % Eosinophils % Basophils % Absolute Neutrophils Absolute Lymphocytes Absolute Monocytes Absolute Eosinophils Absolute Basophils Sodium Potassium Chloride Carbon Dioxide Anion Gap BUN Creatinine Est GFR ( Amer) Est GFR (Non-Af Amer) Glucose Lactic Acid Calcium Total Bilirubin AST ALT Alkaline Phosphatase Total Protein Albumin Lipase Urine Color YELLOW Urine Appearance SLIGHTLY-CLOUDY Urine pH 5.0 Ur Specific [place] 1.025 Urine Protein 30 H Urine Glucose (UA) NEGATIVE Urine Ketones 20 H Urine Blood MODERATE H Urine Nitrite NEGATIVE Ur Leukocyte Esterase TRACE H Urine WBC (Auto) 5 Urine RBC (Auto) 10 Impressions: Abdomen/Pelvis CT 07/29/18 00:16 IMPRESSION: Postoperative changes of right inguinal hernia repair with fluid and air within the operative site as well as several borderline lymph nodes. Assessment & Plan - Diagnosis (1) Abdominal pain Qualifiers: Abdominal location: generalized Qualified Code(s): R10.84 - Generalized abdominal pain Is this a current diagnosis for this admission?: Yes Plan: 2 episodes of nausea and vomiting along with crampy lower abdominal pain in patient who is 2 weeks status post repair of incarcerated femoral hernia. No significant CT abnormalities noted. However with her to successive nights of symptoms, I will bring her in for observation. (2) Urinary tract infection Is this a current diagnosis for this admission?: Yes Plan: Urine analysis suspicious for a UTI. Will place the patient on Cipro and will await urine culture.
[2018-07-29] MEDS ORDERED: ACETAMINOPHEN 325 MG TABLET PO PRN (04:01)
[2018-07-29] MEDS ORDERED: CIPROFLOXACIN HCL 500 MG TABLET PO ONE (04:30)
[2018-07-29] MEDS ORDERED: CIPROFLOXACIN HCL 500 MG TABLET PO SCH (06:00)
[2018-07-29] MEDS: CIPROFLOXACIN HCL 500 MG TABLET PO SCH ×2 (06:00→17:37)
[2018-07-29] MEDS ORDERED: CIPROFLOXACIN HCL 500 MG TABLET ONE (06:05)
[2018-07-29] MEDS: RAMIPRIL 10 MG CAPSULE PO SCH (10:50)
[2018-07-29] MEDS: CITALOPRAM HYDROBROMIDE 20 MG TABLET PO SCH (10:50)
[2018-07-29] MEDS ORDERED: DEXTROSE 5%-1/2 NORMAL SALINE 1,000 ML IV PRN (12:43)
[2018-07-29] MEDS ORDERED: ONDANSETRON HCL INJ/PF 4 MG/2 ML SDV ONE (22:45)
[2018-07-29] MEDS ORDERED: ONDANSETRON HCL INJ/PF 4 MG/2 ML SDV IV PRN (22:50)
--- NOTE | 2018-07-29 23:04 | PDOC PROGRESS REPORT ---
Subjective Progress Note for:: 07/29/18 Subjective:: Feels a lot better this am. Has Flatus Reason For Visit: NAUSEA VOMITING,ABDOMINAL PAIN Physical Exam Vital Signs: Temp Pulse Resp BP Pulse Ox 98.5 F 75 17 146/57 H 95 07/29/18 19:12 07/29/18 19:12 07/29/18 19:12 07/29/18 19:12 07/29/18 19:12 Intake & Output 07/28/18 07/29/18 07/30/18 06:59 06:59 06:59 Intake Total 222 1924 Output Total 900 Balance 222 1024 Weight 47.1 kg Exam: abdomen is soft and non tender. Results Laboratory Results: 07/29/18 00:36 07/29/18 00:36 07/29/18 07/29/18 07/29/18 00:36 00:36 00:36 WBC 13.8 H RBC 3.89 Hgb 13.1 Hct 38.3 MCV 98 H MCH 33.6 H MCHC 34.1 RDW 14.0 Plt Count 287 Seg Neutrophils % 82.8 H Lymphocytes % 10.5 L Monocytes % 5.2 Eosinophils % 1.0 Basophils % 0.5 Absolute Neutrophils 11.4 H Absolute Lymphocytes 1.4 Absolute Monocytes 0.7 Absolute Eosinophils 0.1 Absolute Basophils 0.1 Sodium 140.9 Potassium 4.1 Chloride 102 Carbon Dioxide 29 Anion Gap 10 BUN 20 Creatinine 0.74 Est GFR ( Amer) > 60 Est GFR (Non-Af Amer) > 60 Glucose 112 H Lactic Acid 1.0 Calcium 9.4 Total Bilirubin 0.4 AST 18 ALT 17 Alkaline Phosphatase 66 Total Protein 6.7 Albumin 4.1 Lipase 31.4 Urine Color Urine Appearance Urine pH Ur Specific [place] Urine Protein Urine Glucose (UA) Urine Ketones Urine Blood Urine Nitrite Ur Leukocyte Esterase Urine WBC (Auto) Urine RBC (Auto) 07/29/18 00:40 WBC RBC Hgb Hct MCV MCH MCHC RDW Plt Count Seg Neutrophils % Lymphocytes % Monocytes % Eosinophils % Basophils % Absolute Neutrophils Absolute Lymphocytes Absolute Monocytes Absolute Eosinophils Absolute Basophils Sodium Potassium Chloride Carbon Dioxide Anion Gap BUN Creatinine Est GFR ( Amer) Est GFR (Non-Af Amer) Glucose Lactic Acid Calcium Total Bilirubin AST ALT Alkaline Phosphatase Total Protein Albumin Lipase Urine Color YELLOW Urine Appearance SLIGHTLY-CLOUDY Urine pH 5.0 Ur Specific [place] 1.025 Urine Protein 30 H Urine Glucose (UA) NEGATIVE Urine Ketones 20 H Urine Blood MODERATE H Urine Nitrite NEGATIVE Ur Leukocyte Esterase TRACE H Urine WBC (Auto) 5 Urine RBC (Auto) 10 Impressions: Abdomen/Pelvis CT 07/29/18 00:16 IMPRESSION: Postoperative changes of right inguinal hernia repair with fluid and air within the operative site as well as several borderline lymph nodes. Assessment & Plan - Diagnosis (1) Urinary tract infection Is this a current diagnosis for this admission?: Yes (2) Abdominal pain Qualifiers: Abdominal location: generalized Qualified Code(s): R10.84 - Generalized abdominal pain Is this a current diagnosis for this admission?: Yes - Time Time Spent with patient: 15-24 minutes - Inpatient Certification Medical Necessity: Need For IV Fluids - Plan Summary Plan Summary: Gradually increase diet. Expect discharge in 24-48 hrs
[2018-07-30] MEDS ORDERED: KETOROLAC TROMETHAMINE INJ/PF 30 MG/1 ML SDV ONE (00:45)
[2018-07-30] MEDS ORDERED: PROMETHAZINE HCL INJ 25 MG/1 ML VIAL ONE (00:45)
[2018-07-30] MEDS ORDERED: KETOROLAC TROMETHAMINE INJ/PF 30 MG/1 ML SDV IV PRN (00:47)
[2018-07-30] MEDS ORDERED: PROMETHAZINE HCL INJ 25 MG/1 ML VIAL IV PRN (00:47)
[2018-07-30] MEDS: CIPROFLOXACIN HCL 500 MG TABLET PO SCH ×2 (06:36→17:28)
[2018-07-30 06:55] LABS: HEMATOCRIT 34.8 % (36.0-47.0); HEMOGLOBIN 11.8 g/dL (12.0-15.5); MEAN CORPUSCULAR HEMOGLOBIN 33.4 pg (27.0-33.4); MEAN CORPUSCULAR VOLUME 98 fl (80-97); PLATELET COUNT 229 10^3/uL (150-450); RED BLOOD COUNT 3.54 10^6/uL (3.72-5.28); RED CELL DISTRIBUTION WIDTH 13.6 % (11.5-14.0); WHITE BLOOD COUNT 7.3 10^3/uL (4.0-10.5)
[2018-07-30 07:21] LABS: ANION GAP 6 (5-19); BLOOD UREA NITROGEN 9 mg/dL (7-20); CALCIUM 8.7 mg/dL (8.4-10.2); CARBON DIOXIDE 29 mmol/L (22-30); CHLORIDE 107 mmol/L (98-107); GLUCOSE 91 mg/dL (75-110); POTASSIUM 4.1 mmol/L (3.6-5.0); SODIUM 141.7 mmol/L (137-145)
[2018-07-30] MEDS: RAMIPRIL 10 MG CAPSULE PO SCH (09:09)
[2018-07-30] MEDS: CITALOPRAM HYDROBROMIDE 20 MG TABLET PO SCH (09:09)
--- NOTE | 2018-07-30 14:02 | PDOC PROGRESS REPORT ---
Subjective Progress Note for:: 07/30/18 Subjective:: Nauseous earlier but feeling a lot better now. Reason For Visit: NAUSEA VOMITING,ABDOMINAL PAIN Physical Exam Vital Signs: Temp Pulse Resp BP Pulse Ox 98.3 F 71 18 153/81 H 97 07/30/18 11:55 07/30/18 11:55 07/30/18 11:55 07/30/18 11:55 07/30/18 11:55 Intake & Output 07/29/18 07/30/18 07/31/18 06:59 06:59 06:59 Intake Total 222 2344 237 Output Total 1750 Balance 222 594 237 Weight 47.1 kg 48 kg Exam: abdomen is soft and non tender. Right inguinal incision looks clean and dry No leg pains,swelling or tenderness Results Laboratory Results: 07/30/18 06:34 07/30/18 06:34 07/30/18 07/30/18 06:34 06:34 WBC 7.3 RBC 3.54 L Hgb 11.8 L Hct 34.8 L MCV 98 H MCH 33.4 MCHC 34.0 RDW 13.6 Plt Count 229 Sodium 141.7 Potassium 4.1 Chloride 107 Carbon Dioxide 29 Anion Gap 6 BUN 9 Creatinine 0.71 Est GFR ( Amer) > 60 Est GFR (Non-Af Amer) > 60 Glucose 91 Calcium 8.7 Impressions: Abdomen/Pelvis CT 07/29/18 00:16 IMPRESSION: Postoperative changes of right inguinal hernia repair with fluid and air within the operative site as well as several borderline lymph nodes. Assessment & Plan - Diagnosis (1) Urinary tract infection Is this a current diagnosis for this admission?: Yes (2) Abdominal pain Qualifiers: Abdominal location: generalized Qualified Code(s): R10.84 - Generalized abdominal pain Is this a current diagnosis for this admission?: Yes - Time Time Spent with patient: 15-24 minutes - Inpatient Certification Medical Necessity: Need For IV Fluids, Need for IV Antibiotics - Plan Summary Plan Summary: Continue IV antibiotics for UTI Resume diet and if tolerates well discharge in 24 hrs Continue OPD antibiotics for UTI
[2018-07-30 17:43] VITALS: BP 148/78
[2018-08-01] MEDS ORDERED: ASPIRIN 81 MG TABLET, ENT COATED PO SCH (10:00)
== END 2018-07-30 18:30 | disposition home or self-care (01) ==
LOC: ER 23:32 → EH 07-29 03:53 → 4S 07-29 05:24
PROVIDERS: ATTEND Surgery
PROC: HZ31ZZZ Individual Counseling for Substance Abuse Treatment, Behavioral (ICD-10-PCS; principal; 2018-07-29)
DX: R10.84 Generalized abdominal pain (principal); R11.2 Nausea with vomiting, unspecified; N39.0 Urinary tract infection, site not specified; R14.3 Flatulence; F32.9 Major depressive disorder, single episode, unspecified; I10 Essential (primary) hypertension; F17.210 Nicotine dependence, cigarettes, uncomplicated; K42.9 Umbilical hernia without obstruction or gangrene; D72.829 Elevated white blood cell count, unspecified; M79.89 Other specified soft tissue disorders; Z79.82 Long term (current) use of aspirin; Z79.899 Other long term (current) drug therapy; Z98.890 Other specified postprocedural states; Z90.710 Acquired absence of both cervix and uterus
CPT/HCPCS: 99285; 96361; 96374; 96375; 36415 ×2; 87086; 83605; 83690; 85025; 85027; 80048; 80053; 81001; 74177; 99406; G0378 ×3; A9270 ×7; J1885; J2270; J2550; J3490; J2405; J7070; J7040

== ENCOUNTER 2018-08-05 17:16 | Inpatient (IN) | payer MEDICARE, OTHER ==
[2018-08-05] MEDS ORDERED: NORMAL SALINE 1000 ML 1,000 ML IV ONE (17:58)
[2018-08-05] MEDS ORDERED: ONDANSETRON HCL INJ/PF 4 MG/2 ML SDV IV ONE (18:01)
--- NOTE | 2018-08-05 18:02 | ER Document Report ---
ED Medical Screen (RME) - General Chief Complaint: Abdominal Cramping Stated Complaint: ABDOMINAL PAIN, VOMITING Time Seen by Provider: 08/05/18 17:57 Primary Care Provider: GIUSEPPE GENAO PA-C [Primary Care Provider] - Follow up as needed Mode of Arrival: Wheelchair Information source: Patient, Relative Notes: This is a 78-year-old female with a history of hypertension, status post hernia repair July 12 (Dr. Pacheco) who presents to the emergency room with nausea, vomiting (x6 times) and intermittent abdominal pain. TRAVEL OUTSIDE OF THE [place] IN LAST 30 DAYS: No - Related Data Allergies/Adverse Reactions: No Known Allergies Allergy (Verified 08/05/18 17:32) Past Medical History - Past Medical History Cardiac Medical History: Reports: Hx Hypertension Renal/ Medical History: Denies: Hx Peritoneal Dialysis Psychiatric Medical History: Reports: Hx Depression Past Surgical History: Reports: Hx Abdominal Surgery - hernia repair, Hx Hysterectomy - Immunizations Immunizations up to date: Yes Hx Diphtheria, Pertussis, Tetanus Vaccination: Yes Physical Exam - Vital signs Vitals: Temp Pulse Resp BP Pulse Ox 98.4 F 82 16 187/74 H 100 08/05/18 17:42 08/05/18 17:42 08/05/18 17:42 08/05/18 17:42 08/05/18 17:42 Course - Vital Signs Vital signs: Temp Pulse Resp BP Pulse Ox 98.4 F 82 16 187/74 H 100 08/05/18 17:42 08/05/18 17:42 08/05/18 17:42 08/05/18 17:42 08/05/18 17:42 Doctor's Discharge - Discharge Referrals: GIUSEPPE GENAO PA-C [Primary Care Provider] - Follow up as needed
[2018-08-05 18:42] LABS: ABSOLUTE LYMPHOCYTES (AUTO) 1.1 10^3/uL (0.5-4.7); ABSOLUTE MONOCYTES (AUTO) 0.5 10^3/uL (0.1-1.4); BASOPHILS % (AUTO) 0.3 % (0-2); EOSINOPHILS % (AUTO) 0.2 % (0-6); HEMATOCRIT 42.1 % (36.0-47.0); HEMOGLOBIN 14.3 g/dL (12.0-15.5); MEAN CORPUSCULAR HEMOGLOBIN 33.5 pg (27.0-33.4); MEAN CORPUSCULAR HGB CONC 34.1 g/dL (32.0-36.0); MEAN CORPUSCULAR VOLUME 99 fl (80-97); MONOCYTES % (AUTO) 3.9 % (3-13); PLATELET COUNT 277 10^3/uL (150-450); RED BLOOD COUNT 4.27 10^6/uL (3.72-5.28); RED CELL DISTRIBUTION WIDTH 13.6 % (11.5-14.0); SEGMENTED NEUTROPHILS % (AUTO) 86.6 % (42-78); TOTAL CELLS COUNTED % (AUTO) 100 %; WHITE BLOOD COUNT 12.7 10^3/uL (4.0-10.5)
[2018-08-05] MEDS ORDERED: MORPHINE SULFATE 10 MG/ML INJ IV PRN (19:24)
[2018-08-05 20:12] LABS: ALANINE AMINOTRANSFERASE < 6 U/L (9-52); ALBUMIN 4.4 g/dL (3.5-5.0); ALKALINE PHOSPHATASE 77 U/L (38-126); ANION GAP 11 (5-19); ASPARTATE AMINO TRANSFERASE 30 U/L (14-36); BILIRUBIN,DIRECT 0.4 mg/dL (0.0-0.4); BILIRUBIN,TOTAL 0.6 mg/dL (0.2-1.3); BLOOD UREA NITROGEN 12 mg/dL (7-20); CALCIUM 9.1 mg/dL (8.4-10.2); CARBON DIOXIDE 29 mmol/L (22-30); CHLORIDE 101 mmol/L (98-107); GLUCOSE 107 mg/dL (75-110); POTASSIUM 3.8 mmol/L (3.6-5.0); SODIUM 140.6 mmol/L (137-145); TOTAL PROTEIN 7.4 g/dL (6.3-8.2)
--- NOTE | 2018-08-05 20:26 | ER Document Report ---
ED General - General Chief Complaint: Abdominal Cramping Stated Complaint: ABDOMINAL PAIN, VOMITING Time Seen by Provider: 08/05/18 17:57 Mode of Arrival: Wheelchair Notes: Patient is a 78-year-old female recent incarcerated femoral hernia resection on 12 July who presents with ongoing nausea, vomiting and inability to tolerate oral intake effectively since that surgical procedure. The patient reports that she was rehospitalized the beginning of July for similar symptoms, discharged home feeling better but has had ongoing nausea and vomiting as well as pain to the right lower abdomen since that time. The daughter reports that the patient is becoming malnourished, has lost significant weight since the initial hospitalization. The patient describes a throbbing, aching, constant, diffuse pain to the right side of her abdomen. States that anything she tries to eat or drink she vomits back up. Is having very small bowel movements that are soft. No fever. States she feels globally weak and somewhat lightheaded secondary to not taking anything in. TRAVEL OUTSIDE OF THE [place] IN LAST 30 DAYS: No - Related Data Allergies/Adverse Reactions: No Known Allergies Allergy (Verified 08/05/18 17:32) Past Medical History - General Information source: Patient, Relative - Social History Smoking Status: Current Every Day Smoker Frequency of alcohol use: None Drug Abuse: None Lives with: Family Family History: Reviewed & Not Pertinent Patient has suicidal ideation: No Patient has homicidal ideation: No - Past Medical History Cardiac Medical History: Reports: Hx Hypertension Renal/ Medical History: Denies: Hx Peritoneal Dialysis Psychiatric Medical History: Reports: Hx Depression Past Surgical History: Reports: Hx Abdominal Surgery - hernia repair, Hx Hyster ectomy - Immunizations Immunizations up to date: Yes Hx Diphtheria, Pertussis, Tetanus Vaccination: Yes Review of Systems - Review of Systems Notes: Constitutional: Negative for fever. HENT: Negative for sore throat. Eyes: Negative for visual changes. Cardiovascular: Negative for chest pain. Respiratory: Negative for shortness of breath. Gastrointestinal: Positive for abdominal pain and vomiting Genitourinary: Negative for dysuria. Musculoskeletal: Negative for back pain. Skin: Negative for rash. Neurological: Negative for headaches, weakness or numbness. 10 point ROS negative except as marked above and in HPI. Physical Exam - Vital signs Vitals: Temp Pulse Resp BP Pulse Ox 98.4 F 82 16 187/74 H 100 08/05/18 17:42 08/05/18 17:42 08/05/18 17:42 08/05/18 17:42 08/05/18 17:42 Interpretation: Hypertensive Notes: PHYSICAL EXAMINATION: GENERAL: Emaciated, in no distress HEAD: Atraumatic, normocephalic. EYES: Pupils equal round and reactive to light, extraocular movements intact, sclera anicteric, conjunctiva are normal. ENT: nares patent, oropharynx clear without exudates. Moderately dry mucous membranes. NECK: Normal range of motion, supple without lymphadenopathy LUNGS: Breath sounds clear to auscultation bilaterally and equal. No wheezes rales or rhonchi. HEART: Regular tachycardia without murmurs ABDOMEN: Mildly distended abdomen. There is firmness to the right lower and right mid abdomen was particular over the incisional site. This area is also focally tender on palpation but there is no palpable hernia. Bowel sounds are diminished.. EXTREMITIES: Normal range of motion, no pitting or edema. No cyanosis. NEUROLOGICAL: No focal neurological deficits. Moves all extremities spontan eously and on command. PSYCH: Normal mood, normal affect. SKIN: Warm, Dry, normal turgor, no rashes or lesions noted. Course - Re-evaluation Re-evalutation: 08/05/18 20:24 Patient presents with ongoing abdominal pain, nausea, vomiting, inability to tolerate oral intake since having a femoral hernia repair on 12 July. The patient has been rehospitalized on 1 occasions secondary to these issues approximately 1 week ago, presents with ongoing similar issues. The patient has lost 10 kg since her hospitalization on the , clearly is not eating or drinking at home. Does appear dehydrated. Initial labs are notable for mild leukocytosis. Suspect probable postoperative issue, will obtain CT with oral and IV contrast and then discussed with the surgeon on-call 08/05/18 22:33 CT scan of the abdomen pelvis reveals acute bowel obstruction. I have discussed with the surgeon on-call Dr. Dodson who has accepted the patient. - Vital Signs Vital signs: Temp Pulse Resp BP Pulse Ox 98.6 F 82 17 159/66 H 95 08/05/18 18:56 08/05/18 17:42 08/05/18 21:01 08/05/18 21:01 08/05/18 21:01 - Laboratory Result Diagrams: 08/05/18 18:00 08/05/18 19:38 Laboratory results interpreted by me: 08/05/18 08/05/18 18:00 19:38 WBC 12.7 H MCV 99 H MCH 33.5 H Seg Neutrophils % 86.6 H Lymphocytes % 9.0 L Absolute Neutrophils 11.0 H ALT < 6 L Lipase 18.0 L - Diagnostic Test Radiology reviewed: Reports reviewed Discharge - Discharge Clinical Impression: Small bowel obstruction Vomiting Qualifiers: Vomiting type: unspecified Vomiting Intractability: unspecified Nausea presence: with nausea Qualified Code(s): R11.2 - Nausea with vomiting, unspecified Malnutrition Qualifiers: Malnutrition type: protein-calorie malnutrition Protein-calorie malnutrition severity: moderate Qualified Code(s): E44.0 - Moderate protein-calorie malnutrition Condition: Fair Disposition: ADMITTED INPATIENT
--- NOTE | 2018-08-05 22:05 | RADIOLOGY REPORT (SQ) ---
EXAM DESCRIPTION: CT ABDOMEN PELVIS WITH IV CONTRAST COMPLETED DATE/TME: 08/05/2018 00:00 CLINICAL HISTORY: 78 years, Female, eval sbo? post-op COMPARISON: CT abdomen and pelvis 07/29/2018 TECHNIQUE: Axial images of the abdomen and pelvis were performed utilizing intravenous contrast, with sagittal and coronal reformatted images. Images stored on PACS. All CT scanners at this facility use dose modulation, iterative reconstruction, and/or weight based dosing when appropriate to reduce radiation dose to as low as reasonably achievable (ALARA). [facility]: Dose Right [facility]: CareDose [facility]: Dose Right [facility]: Teradose 4D [facility]: [employer] LIMITATIONS: None. FINDINGS: There are multiple loops of mildly dilated small bowel in the mid and lower abdomen and pelvis, with some normal caliber distal ileum, compatible with small bowel obstruction. This is a new finding, as compared with the prior CT scan. There is a small amount of ascites. There is diverticulosis without diverticulitis. There are atherosclerotic changes involving the abdominal aorta, but there is no aneurysm. The appendix appears normal. There is no significant radiographic abnormality of the liver, spleen, pancreas, adrenal glands or kidneys. IMPRESSION: Small bowel obstruction. Small amount of ascites. Other findings as described. TECHNICAL DOCUMENTATION: Quality ID # 436: Final reports with documentation of one or more dose reduction techniques (e.g., Automated exposure control, adjustment of the mA and/or kV according to patient size, use of iterative reconstruction technique) copyright 2010 [employer]- All Rights Reserved
[2018-08-06] MEDS ORDERED: PHARMACY COMMUNICATION ORDER MC NR (00:15)
--- NOTE | 2018-08-06 00:15 | PDOC H&P ---
History of Present Illness Admission Date/PCP: GIUSEPPE GENAO PA-C Patient complains of: Nausea and vomiting, weight loss of 12 pounds History of Present Illness: DEB GILL is a 78 year old female s/p open repair of incarcerated right femoral hernai about 2 weeks ago. During the repair, a loop of small bowel was noted to be incarcerated and slightly ischemic. This loop was released and after it appeared to maldonado ve returned normal in color it was replacred within the peritoneal cavity. She was discharged to home approximately 3 days later. Since thisn she has been able to tolerated oral liquids only, no tolerance to solids at all, good urination, no defecation, and little flatulance. Last week on , she returned to the hospital with those complaints and a normal CT scan A/P was obtained. However, she underwent precautionary readmission for observation, IV hydration, and the administration of antinausea medications. She was offered liquid diet which was well tolerated. Once she was discharged three days later, she was able to tolerate oral liquids only and poor defecation with occasional flatulance. This morning, she felt hungry and tried to eat a few crackers which she vomited shortly after. This prompted her to return to the ED where a CT scan A/P was done and it revealed a possible small bowel obstruction. Past Medical History Cardiac Medical History: Reports: Hypertension Psychiatric Medical History: Reports: Depression Past Surgical History Past Surgical History: Reports: Hysterectomy Social History Smoking Status: Current Every Day Smoker Frequency of Alcohol Use: Rare Hx Recreational Drug Use: No Drugs: None Hx Prescription Drug Abuse: No Family History Family History: Reviewed & Not Pertinent Parental Family History Reviewed: Yes Children Family History Reviewed: No Sibling(s) Family History Reviewed.: No Medication/Allergy Home Medications: Citalopram Hydrobromide [Celexa 40 mg Tablet] 40 mg PO DAILY 07/29/18 Ramipril [Altace 10 mg Capsule] 10 mg PO DAILY 07/29/18 Allergies/Adverse Reactions: No Known Allergies Allergy (Verified 08/05/18 17:32) Physical Exam Vital Signs: Temp Pulse Resp BP Pulse Ox 98.6 F 82 17 159/66 H 95 08/05/18 18:56 08/05/18 17:42 08/05/18 21:01 08/05/18 21:01 08/05/18 21:01 Intake & Output 08/04/18 08/05/18 08/06/18 06:59 06:59 06:59 Weight 44 kg General appearance: PRESENT: no acute distress Head exam: PRESENT: atraumatic Eye exam: PRESENT: EOMI Mouth exam: PRESENT: moist, neck supple Neck exam: PRESENT: full ROM Respiratory exam: PRESENT: clear to auscultation raymond Cardiovascular exam: PRESENT: RRR GI/Abdominal exam: PRESENT: distended, hypoactive bowel sounds, soft, other - Right groin: well healed surgical scan, indurated subcutaneous tissue, no tendernness, no masses appreciated, and no bulge identified on coughing or Valsalva manuever Rectal exam: PRESENT: deferred Extremities exam: PRESENT: full ROM Musculoskeletal exam: PRESENT: full ROM Neurological exam: PRESENT: alert, oriented to person, oriented to place Psychiatric exam: PRESENT: appropriate affect Skin exam: PRESENT: warm Results Laboratory Results: 08/05/18 18:00 08/05/18 19:38 08/05/18 08/05/18 08/05/18 18:00 18:00 19:38 WBC 12.7 H RBC 4.27 Hgb 14.3 Hct 42.1 MCV 99 H MCH 33.5 H MCHC 34.1 RDW 13.6 Plt Count 277 Seg Neutrophils % 86.6 H Lymphocytes % 9.0 L Monocytes % 3.9 Eosinophils % 0.2 Basophils % 0.3 Absolute Neutrophils 11.0 H Absolute Lymphocytes 1.1 Absolute Monocytes 0.5 Absolute Eosinophils 0.0 Absolute Basophils 0.0 Sodium Cancelled 140.6 Potassium Cancelled 3.8 Chloride Cancelled 101 Carbon Dioxide Cancelled 29 Anion Gap Cancelled 11 BUN Cancelled 12 Creatinine Cancelled 0.66 Est GFR ( Amer) Cancelled > 60 Est GFR (Non-Af Amer) Cancelled > 60 Glucose Cancelled 107 Calcium Cancelled 9.1 Total Bilirubin Cancelled 0.6 AST Cancelled 30 ALT Cancelled < 6 L Alkaline Phosphatase Cancelled 77 Total Protein Cancelled 7.4 Albumin Cancelled 4.4 Lipase Cancelled 18.0 L Impressions: Abdomen/Pelvis CT 08/05/18 00:00 IMPRESSION: Small bowel obstruction. Small amount of ascites. Other findings as described. TECHNICAL DOCUMENTATION: Quality ID # 436: Final reports with documentation of one or more dose reduction techniques (e.g., Automated exposure control, adjustment of the mA and/or kV according to patient size, use of iterative reconstruction technique) copyright 2011 [employer]- All Rights Reserved Assessment & Plan - Diagnosis (1) Malnutrition Qualifiers: Malnutrition type: protein-calorie malnutrition Protein-calorie malnutrition severity: moderate Qualified Code(s): E44.0 - Moderate protein- calorie malnutrition Is this a current diagnosis for this admission?: Yes (2) Small bowel obstruction Is this a current diagnosis for this admission?: Yes (3) Vomiting Qualifiers: Vomiting type: unspecified Vomiting Intractability: unspecified Nausea presence: with nausea Qualified Code(s): R11.2 - Nausea with vomiting, unspecified Is this a current diagnosis for this admission?: Yes - Plan Summary Plan Summary: A/ S/p right incarcerated femoral hernia repoair with mesh 2 weeks ago Persistent postoperative nauseaand vomiting with tolerance to liquids only Weight loss of [address] scan with oral /IV contrast done today which entertains the possibility of small bowel obstruction. Heavy smoker (1ppd) P/ Admission NPO IVF Repeat blood work in AM Case discussed with Radiologist admissions manager: will repeat CT scan A/P with IV/oral contrast in AM to follow up on the initial findings. Hospitalist on consult for perioperative medical management
[2018-08-06] MEDS: ONDANSETRON HCL INJ/PF 4 MG/2 ML SDV IV PRN ×3 (01:21→18:02)
[2018-08-06] MEDS: MORPHINE SULFATE 10 MG/ML INJ IV PRN ×4 (01:21→15:17)
[2018-08-06] MEDS ORDERED: ALBUTEROL SULFATE 0.083% NEB 2.5 MG/3 ML AMPUL NEB PRN (01:23)
[2018-08-06] MEDS: NORMAL SALINE 1000 ML 1,000 ML IV PRN ×2 (02:26→10:22)
--- NOTE | 2018-08-06 02:59 | RADIOLOGY REPORT (SQ) ---
EXAM DESCRIPTION: XR ABDOMEN 1 VIEW (KUB) COMPLETED DATE/TME: 08/06/2018 00:17 CLINICAL HISTORY: 78 years, Female, Check Placement of NG Tube COMPARISON: None. NUMBER OF VIEWS: 1 TECHNIQUE: Supine abdomen LIMITATIONS: None. FINDINGS: Residual contrast within the urinary bladder. Evaluation for free air limited on a supine view. Osteopenia. Mildly dilated air-filled loops of small bowel. Enteric tube with the tip in the left upper quadrant/stomach. IMPRESSION: Tip of the enteric tube in the stomach copyright 2010 [employer]- All Rights Reserved
[2018-08-06] MEDS: LEVALBUTEROL HCL NEB 1.25 MG/3 ML AMPUL NEB SCH ×2 (08:57→15:51)
[2018-08-06] MEDS: IPRATROPIUM BROMIDE 0.02% NEB 0.5 MG/2.5 ML AMPUL NEB SCH ×2 (08:57→15:51)
[2018-08-06] MEDS: BUDESONIDE NEB 0.5 MG/2 ML AMPUL NEB SCH ×2 (08:57→20:35)
[2018-08-06] MEDS: NICOTINE 21 MG/24 HR PATCH.TD24 TD PRN (10:20)
[2018-08-06] MEDS: FAMOTIDINE INJ/PF 20 MG/2 ML SDV IV SCH ×2 (10:20→22:27)
--- NOTE | 2018-08-06 12:36 | EKG REPORT ---
SEVERITY:- NORMAL ECG - SINUS RHYTHM : Confirmed by: Adela Bradley MD 06-Aug-2018 12:36:00
[2018-08-06 12:37] LABS: ABSOLUTE BASOPHILS # (AUTO) 0.1 10^3/uL (0.0-0.2); ABSOLUTE EOSINOPHILS # (AUTO) 0.1 10^3/uL (0.0-0.6); ABSOLUTE LYMPHOCYTES (AUTO) 1.4 10^3/uL (0.5-4.7); ABSOLUTE MONOCYTES (AUTO) 0.6 10^3/uL (0.1-1.4); ABSOLUTE NEUT (AUTO) 5.5 10^3/uL (1.7-8.2); BASOPHILS % (AUTO) 0.7 % (0-2); EOSINOPHILS % (AUTO) 0.7 % (0-6); HEMATOCRIT 34.9 % (36.0-47.0); LYMPHOCYTES % (AUTO) 18.2 % (13-45); MEAN CORPUSCULAR HEMOGLOBIN 33.2 pg (27.0-33.4); MEAN CORPUSCULAR HGB CONC 33.8 g/dL (32.0-36.0); MEAN CORPUSCULAR VOLUME 98 fl (80-97); MONOCYTES % (AUTO) 8.3 % (3-13); PLATELET COUNT 233 10^3/uL (150-450); RED BLOOD COUNT 3.55 10^6/uL (3.72-5.28); RED CELL DISTRIBUTION WIDTH 13.6 % (11.5-14.0); SEGMENTED NEUTROPHILS % (AUTO) 72.1 % (42-78); TOTAL CELLS COUNTED % (AUTO) 100 %; WHITE BLOOD COUNT 7.7 10^3/uL (4.0-10.5)
[2018-08-06 12:40] LABS: HEMOGLOBIN 11.8 g/dL (12.0-15.5)
--- NOTE | 2018-08-06 12:41 | RADIOLOGY REPORT (SQ) ---
EXAM DESCRIPTION: CT ABD/PELVIS ORAL ONLY COMPLETED DATE/TIME: 08/06/2018 11:54 am REASON FOR STUDY: follow up small bowel obstruction COMPARISON: CT abdomen and pelvis 08/05/2018. KUB 08/06/2018. TECHNIQUE: CT scan of the abdomen and pelvis performed with oral contrast. Images reviewed with lung , soft tissue, and bone windows. Reconstructed coronal and sagittal MPR images reviewed. All images s tored on PACS. All CT scanners at this facility use dose modulation, iterative reconstruction, and/or weight based d osing when appropriate to reduce radiation dose to as low as reasonably achievable (ALARA). [facility]: Dose Right [facility]: CareDose [facility]: Dose Right [facility]: Teradose 4D [facility]: [employer] RADIATION DOSE: CT Rad equipment meets quality standard of care and radiation dose reduction techniq ues were employed. CTDIvol: 4.8 mGy. DLP: 224 mGy-cm.mGy. LIMITATIONS: None. FINDINGS: LOWER CHEST: There are small bilateral pleural effusions with mild bibasilar atelectasis. There is a 7 mm pleural-based nodule at the left lower lobe (axial image 12/19). NON-CONTRASTED LIVER, SPLEEN, ADRENALS: Evaluation limited by lack of IV contrast. No identified sign ificant masses. PANCREAS: No peripancreatic inflammatory changes. GALLBLADDER: There is hyperdense material within the gallbladder. . RIGHT KIDNEY AND URETER: Assessment for masses limited by lack of IV contrast. No significant calci fications. No hydronephrosis or hydroureter. LEFT KIDNEY AND URETER: Assessment for masses limited by lack of IV contrast. No significant calcif ications. No hydronephrosis or hydroureter. AORTA AND RETROPERITONEUM: Atherosclerotic calcifications at the abdominal aorta and its branches. N o abdominal aortic aneurysm. No retroperitoneal masses or hemorrhage. BOWEL AND PERITONEAL CAVITY: An enteric tube terminates in the stomach. Oral contrast is seen within the stomach, small bowel loops and colon. There is no evidence of bowel obstruction. There is wall thickening at distal small bowel loops. There is colonic diverticulosis is with no CT evidence for acute diverticulitis. Small amount of free fluid. No free air. APPENDIX: Normal. PELVIS, BLADDER, AND ABDOMINAL WALL:No pelvic mass. No free fluid. Bladder decompressed. Postsurgica l changes are noted at the right inguinal region. There are small fat containing hernias at the abdo edith wall. BONES: Multilevel degenerative changes at the spine. IMPRESSION: 1. No small bowel obstruction. Wall thickening at distal small bowel loops, may be se condary to enteritis, this can be due to acute infection/inflammation or ischemia. 2. Small ascites. 3. Colonic diverticulosis. 4. Hyperdense material within the gallbladder, may represent vicarious excretion of the intravenous c ontrast from prior CT abdomen and pelvis. 5. Small bilateral pleural effusions with mild bibasilar atelectasis. 6. 7 mm nodule at the left lower lobe. Follow-up CT as per patient's risk factors. COMMENT: FLEISCHNER CRITERIA FOR FOLLOW-UP OF PULMONARY NODULES Incidentally detected new nodules in persons 35 or older. HIGH RISK: History of smoking or other known risk factors. 6-8mm single solid nodule: LOW RISK: CT 6-12 mo; then consider CT 18-24 mo. HIGH RISK: CT 6-12 mo; th en CT 18-24 mo. Quality ID # 436: Final reports with documentation of one or more dose reduction techniques (e.g., Au tomated exposure control, adjustment of the mA and/or kV according to patient size, use of iterative reconstruction technique) TECHNICAL DOCUMENTATION: JOB ID: [id number] [place]-64 2010 [employer]- All Rights Reserved Reading location - IP/workstation name: [email or web address]
[2018-08-06 12:55] LABS: ANION GAP 8 (5-19); BLOOD UREA NITROGEN 7 mg/dL (7-20); CALCIUM 8.1 mg/dL (8.4-10.2); CARBON DIOXIDE 25 mmol/L (22-30); CHLORIDE 103 mmol/L (98-107); GLUCOSE 86 mg/dL (75-110)
--- NOTE | 2018-08-06 15:05 | PDOC CONSULTATION ---
Consultation Consult Date: 08/06/18 Attending physician:: EMMY CUEVAS Consult reason:: Hypertension and chronic obstructive pulmonary disease History of Present Illness Admission Date/PCP: 08/06/18 00:52 GIUSEPPE GENAO PA-C Patient complains of: Abdominal pain History of Present Illness: DEB GILL is a 78 year old female with a history of depression and hypertension who underwent open repair of incarcerated right femoral hernia approximately 3 weeks ago. She presented approximately 1 week later to the hospital was released and presents again yesterday. She has had very poor appetite. She has had increased abdominal pain. She has lost 12 pounds since her initial surgery. There is some swelling near the incision in the right groin. She has a history of chronic obstructive pulmonary disease but is having no difficulty breathing and is not needing supplemental oxygen. Aside from the nasogastric tube in her nose and pain in the abdomen she appears stable. Past Medical History Cardiac Medical History: Reports: Hypertension Pulmonary Medical History: Reports: Chronic Obstructive Pulmonary Disease (COPD) - No PFTs. Diagnosis by smoking history and possibly x-ray EENT Medical History: Reports: Cataracts - Needs to schedule cataract surgery Neurological Medical History: Reports: None Endocrine Medical History: Reports: None Renal/ Medical History: Reports: None Malignancy Medical History: Reports: None GI Medical History: Reports: None Musculoskeltal Medical History: Reports: None Skin Medical History: Reports: None Psychiatric Medical History: Reports: Depression, Tobacco Dependency Traumatic Medical History: Reports: None Hematology: Reports: None Infectious Medical History: Reports: None Past Surgical History Past Surgical History: Reports: Herniorrhaphy, Hysterectomy Social History Information Source: Patient, Relative Lives with: Alone, Other - Smoking Status: Current Every Day Smoker Cigarettes Packs Per Day: 1 Frequency of Alcohol Use: Rare Hx Recreational Drug Use: No Drugs: None Hx Prescription Drug Abuse: No - Advance Directive Resuscitation Status: Full Code Surrogate healthcare decision maker:: Unaware of any healthcare proxy documentation. Daughter would be her primary decision maker. Family History Family History: Reviewed & Not Pertinent, CAD, CVA, Malignancy - Very diffuse hi story of malignancy. Parental Family History Reviewed: Yes Children Family History Reviewed: Yes Sibling(s) Family History Reviewed.: Yes Medication/Allergy Home Medications: Citalopram Hydrobromide [Celexa 40 mg Tablet] 40 mg PO DAILY 07/29/18 Ramipril [Altace 10 mg Capsule] 10 mg PO DAILY 07/29/18 Allergies/Adverse Reactions: No Known Allergies Allergy (Verified 08/05/18 17:32) Review of Systems Constitutional: PRESENT: anorexia - 12 pound weight loss over 3 weeks, fatigue, weight loss Eyes: PRESENT: other - Cataracts Ears: ABSENT: hearing changes Nose, Mouth, and Throat: PRESENT: other - Needs dental work. Has a partial bridge. Cardiovascular: ABSENT: chest pain, edema, orthropnea, palpitations Respiratory: ABSENT: cough, dyspnea, hemoptysis, sputum Gastrointestinal: PRESENT: abdominal pain, nausea, vomiting Genitourinary: ABSENT: dysuria, hematuria Musculoskeletal: ABSENT: back pain, deformity Integumentary: ABSENT: diaphoresis, lesions, pruritus Neurological: ABSENT: confusion, dizziness, frequent falls, memory loss Psychiatric: PRESENT: depression. ABSENT: anxiety Endocrine: ABSENT: cold intolerance, heat intolerance Hematologic/Lymphatic: ABSENT: easy bleeding Physical Exam Vital Signs: Temp Pulse Resp BP Pulse Ox 98.1 F 85 18 149/56 H 93 08/06/18 07:47 08/06/18 08:57 08/06/18 08:57 08/06/18 07:47 08/06/18 08:57 Intake & Output 08/05/18 08/06/18 08/07/18 06:59 06:59 07:59 Intake Total 1000 992 Balance 1000 992 Weight 44 kg General appearance: PRESENT: cooperative, mild distress, thin, well-developed Head exam: PRESENT: atraumatic, normocephalic, other - Nasogastric tube in place Eye exam: PRESENT: conjunctiva pale, EOMI. ABSENT: scleral icterus Ear exam: PRESENT: normal external ear exam Mouth exam: PRESENT: moist, neck supple, tongue midline Neck exam: PRESENT: full ROM. ABSENT: carotid bruit, lymphadenopathy Respiratory exam: PRESENT: clear to auscultation raymond, symmetrical, unlabored. ABSENT: accessory muscle use, crackles, rales, rhonchi, wheezes Cardiovascular exam: PRESENT: RRR, +S1, +S2 Pulses: PRESENT: normal dorsalis pedis pul Vascular exam: PRESENT: pallor GI/Abdominal exam: PRESENT: normal bowel sounds, soft, tenderness, other - Sligh t bulge over right inguinal incision. ABSENT: distended Rectal exam: PRESENT: deferred Extremities exam: ABSENT: joint swelling, pedal edema Musculoskeletal exam: PRESENT: other - Decreased muscle mass Neurological exam: PRESENT: alert, awake, oriented to person, oriented to place, oriented to time, oriented to situation, CN II-XII grossly intact Psychiatric exam: PRESENT: flat affect. ABSENT: agitated, anxious Focused psych exam: ABSENT: delusional, restlessness Results Laboratory Results: 08/06/18 12:20 08/06/18 12:47 08/05/18 08/05/18 08/05/18 18:00 18:00 19:38 WBC 12.7 H RBC 4.27 Hgb 14.3 Hct 42.1 MCV 99 H MCH 33.5 H MCHC 34.1 RDW 13.6 Plt Count 277 Seg Neutrophils % 86.6 H Lymphocytes % 9.0 L Monocytes % 3.9 Eosinophils % 0.2 Basophils % 0.3 Absolute Neutrophils 11.0 H Absolute Lymphocytes 1.1 Absolute Monocytes 0.5 Absolute Eosinophils 0.0 Absolute Basophils 0.0 Sodium Cancelled 140.6 Potassium Cancelled 3.8 Chloride Cancelled 101 Carbon Dioxide Cancelled 29 Anion Gap Cancelled 11 BUN Cancelled 12 Creatinine Cancelled 0.66 Est GFR ( Amer) Cancelled > 60 Est GFR (Non-Af Amer) Cancelled > 60 Glucose Cancelled 107 Calcium Cancelled 9.1 Total Bilirubin Cancelled 0.6 AST Cancelled 30 ALT Cancelled < 6 L Alkaline Phosphatase Cancelled 77 Total Protein Cancelled 7.4 Albumin Cancelled 4.4 Lipase Cancelled 18.0 L 08/06/18 08/06/18 12:20 12:47 WBC 7.7 RBC 3.55 L Hgb 11.8 L D Hct 34.9 L MCV 98 H MCH 33.2 MCHC 33.8 RDW 13.6 Plt Count 233 Seg Neutrophils % 72.1 Lymphocytes % 18.2 Monocytes % 8.3 Eosinophils % 0.7 Basophils % 0.7 Absolute Neutrophils 5.5 Absolute Lymphocytes 1.4 Absolute Monocytes 0.6 Absolute Eosinophils 0.1 Absolute Basophils 0.1 Sodium 136.0 L Potassium 3.0 L* Chloride 103 Carbon Dioxide 25 Anion Gap 8 BUN 7 Creatinine 0.61 Est GFR ( Amer) > 60 Est GFR (Non-Af Amer) > 60 Glucose 86 Calcium 8.1 L Total Bilirubin AST ALT Alkaline Phosphatase Total Protein Albumin Lipase Impressions: KUB X-Ray 03/09/19 00:17 IMPRESSION: Tip of the enteric tube in the stomach copyright 2011 [employer]- All Rights Reserved Abdomen/Pelvis CT 08/06/18 10:00 IMPRESSION: 1. No small bowel obstruction. Wall thickening at distal small bowel loops, may be secondary to enteritis, this can be due to acute infection /inflammation or ischemia. 2. Small ascites. 3. Colonic diverticulosis. 4. Hyperdense material within the gallbladder, may represent vicarious excretion of the intravenous contrast from prior CT abdomen and pelvis. 5. Small bilateral pleural effusions with mild bibasilar atelectasis. 6. 7 mm nodule at the left lower lobe. Follow-up CT as per patient's risk factors. Assessment & Plan - Diagnosis (1) Small bowel obstruction Is this a current diagnosis for this admission?: Yes Plan: The patient has had complications from her right incarcerated inguinal hernia repair 3 weeks ago. She presents with a bulge at the incision. They are repeating a CT scan of the abdomen with oral contrast. The contrast is being administered through the NG tube. She states that she still has pain but it feels somewhat better. Please see surgical list notes. (2) Hypertension Qualifiers: Hypertension type: essential hypertension Qualified Code(s): I10 - Essential (primary) hypertension Is this a current diagnosis for this admission?: Yes Plan: I will exchange lisinopril 10 mg for all tastes. We will administer this through the NG tube as she good blood pressure control especially if looking at surgery. (3) Depression Qualifiers: Depression Type: unspecified Qualified Code(s): F32.9 - Major depressive disorder, single episode, unspecified Is this a current diagnosis for this admission?: Yes Plan: We will administer 40 mg of Celexa daily through the nasogastric tube. Abrupt withdrawal of SSRI medications can give serotonin syndrome. (4) Malnutrition Qualifiers: Malnutrition type: protein-calorie malnutrition Protein-calorie malnutrition severity: moderate Qualified Code(s): E44.0 - Moderate protein- calorie malnutrition Is this a current diagnosis for this admission?: Yes Plan: The patient has experienced 12 pound weight loss in 3 weeks. When she is back on oral diet consider protein supplements and a dietitian consult. (5) COPD (chronic obstructive pulmonary disease) Qualifiers: Chronic bronchitis type: unspecified Is this a current diagnosis for this admission?: Yes Plan: The patient carries a diagnosis of chronic obstructive pulmonary disease. She has never had pulmonary function testing to the best of her knowledge. She still smokes. Unfortunately this can affect wound healing. Perhaps the diagnosis was made based on her smoking and chest x-ray. Inhaler regimen is available. (6) Smoker Is this a current diagnosis for this admission?: Yes Plan: Discussed the need to stop smoking. There is a huge family history of cancer. Nicotine patch is available. - Time Time Spent: 50 to 70 Minutes Smoking Cessation Education: 3 to 10 minutes Medications reviewed and adjusted accordingly: Yes
[2018-08-06] MEDS: POTASSIUM CHLORIDE 20 MEQ/50 ML RTU IV SCH ×3 (15:18→20:13)
--- NOTE | 2018-08-06 16:11 | PDOC PROGRESS REPORT ---
Subjective Progress Note for:: 08/06/18 Subjective:: Patient preesnts with occasional nausea and complains of lower abdominal discomfort; flatus passed today twice. Reason For Visit: SMALL BOWEL OBSTRUCTION Physical Exam Vital Signs: Temp Pulse Resp BP Pulse Ox 98.1 F 85 18 149/56 H 93 08/06/18 07:47 08/06/18 08:57 08/06/18 08:57 08/06/18 07:47 08/06/18 08:57 Intake & Output 08/05/18 08/06/18 08/07/18 06:59 06:59 07:59 Intake Total 1000 992 Balance 1000 992 Weight 44 kg General appearance: PRESENT: no acute distress Mouth exam: PRESENT: moist Respiratory exam: PRESENT: clear to auscultation raymond Cardiovascular exam: PRESENT: RRR GI/Abdominal exam: PRESENT: normal bowel sounds, soft, tenderness - none;, other - right groin= indurated tissue with well healing surgical scar Neurological exam: PRESENT: alert, awake Results Laboratory Results: 08/06/18 12:20 08/06/18 12:47 08/05/18 08/05/18 08/05/18 18:00 18:00 19:38 WBC 12.7 H RBC 4.27 Hgb 14.3 Hct 42.1 MCV 99 H MCH 33.5 H MCHC 34.1 RDW 13.6 Plt Count 277 Seg Neutrophils % 86.6 H Lymphocytes % 9.0 L Monocytes % 3.9 Eosinophils % 0.2 Basophils % 0.3 Absolute Neutrophils 11.0 H Absolute Lymphocytes 1.1 Absolute Monocytes 0.5 Absolute Eosinophils 0.0 Absolute Basophils 0.0 Sodium Cancelled 140.6 Potassium Cancelled 3.8 Chloride Cancelled 101 Carbon Dioxide Cancelled 29 Anion Gap Cancelled 11 BUN Cancelled 12 Creatinine Cancelled 0.66 Est GFR ( Amer) Cancelled > 60 Est GFR (Non-Af Amer) Cancelled > 60 Glucose Cancelled 107 Calcium Cancelled 9.1 Total Bilirubin Cancelled 0.6 AST Cancelled 30 ALT Cancelled < 6 L Alkaline Phosphatase Cancelled 77 Total Protein Cancelled 7.4 Albumin Cancelled 4.4 Lipase Cancelled 18.0 L 08/06/18 08/06/18 12:20 12:47 WBC 7.7 RBC 3.55 L Hgb 11.8 L D Hct 34.9 L MCV 98 H MCH 33.2 MCHC 33.8 RDW 13.6 Plt Count 233 Seg Neutrophils % 72.1 Lymphocytes % 18.2 Monocytes % 8.3 Eosinophils % 0.7 Basophils % 0.7 Absolute Neutrophils 5.5 Absolute Lymphocytes 1.4 Absolute Monocytes 0.6 Absolute Eosinophils 0.1 Absolute Basophils 0.1 Sodium 136.0 L Potassium 3.0 L* Chloride 103 Carbon Dioxide 25 Anion Gap 8 BUN 7 Creatinine 0.61 Est GFR ( Amer) > 60 Est GFR (Non-Af Amer) > 60 Glucose 86 Calcium 8.1 L Total Bilirubin AST ALT Alkaline Phosphatase Total Protein Albumin Lipase Impressions: KUB X-Ray 08/06/18 00:17 IMPRESSION: Tip of the enteric tube in the stomach copyright 2011 [employer]- All Rights Reserved Abdomen/Pelvis CT 08/06/18 10:00 IMPRESSION: 1. No small bowel obstruction. Wall thickening at distal small bowel loops, may be secondary to enteritis, this can be due to acute infection/inflammation or ischemia. 2. Small ascites. 3. Colonic diverticulosis. 4. Hyperdense material within the gallbladder, may represent vicarious excretion of the intravenous contrast from prior CT abdomen and pelvis. 5. Small bilateral pleural effusions with mild bibasilar atelectasis. 6. 7 mm nodule at the left lower lobe. Follow-up CT as per patient's risk factors. Assessment & Plan - Diagnosis (1) Malnutrition Qualifiers: Malnutrition type: protein-calorie malnutrition Protein-calorie malnutrition severity: moderate Qualified Code(s): E44.0 - Moderate protein- calorie malnutrition Is this a current diagnosis for this admission?: Yes (2) Small bowel obstruction Is this a current diagnosis for this admission?: Yes (3) Vomiting Qualifiers: Vomiting type: cyclical vomiting Vomiting Intractability: unspecified Nausea presence: with nausea Qualified Code(s): G43.A0 - Cyclical vomiting, not intractable Is this a current diagnosis for this admission?: Yes - Plan Summary Plan Summary: A/ POD #25 after open repair of incarcerated R femoral vein with mesh Patient admitted for the second time after the herniorraphy due to nausea vomiting, none of the two observed by staff NGT output scant Flatus present CT scan A/P repeated today shows contrast into colon, no evidence of bowel obstruction, and presence of distal ileum loop narrowed as per enteritis Also, CT scan A/P done today confirms the suspicious presence of LLL 7 mm. lung nodule; while a previous CT scan A/P (07/11/18) identified multiple bilateral l dolores nodules < 7 mm. Heavy smoker Low K (3.0) P/ Correct hypokalemia Consult Pulmonary Service (Dr. Porras) for lung nodules; patient to se seen in AM CT scan Chest without contrast as recommended by Pulmonary Service Clamp NGT x 4 hrs, check residual, and remove NGT if residual is minimal and ad moya diet Long discussion entertained with patient's daughter and patient about methodology used to assess patient's bowel obstruction symptoms, which includes: Xrays, NGT clamping and removal, and diet progression. All of these are and will be done to exactly assess the extent of the bowel obstruction, if any, as some of her symptoms might be due to other causes (i.e. poor appetite might be due to other GI causes or her lung nodule; nausea/vomiting due to gastritis, etc.).
--- NOTE | 2018-08-06 18:51 | RADIOLOGY REPORT (SQ) ---
EXAM DESCRIPTION: CT CHEST WITHOUT COMPLETED DATE/TIME: 08/06/2018 5:30 pm REASON FOR STUDY: bilateral lung nodules; r/o malignancy COMPARISON: None. TECHNIQUE: CT scan performed of the chest without intravenous contrast. Images reviewed with lung, soft tissue and bone windows. Reconstructed coronal and sagittal MPR images reviewed. All images st ored on PACS. All CT scanners at this facility use dose modulation, iterative reconstruction, and/or weight based d osing when appropriate to reduce radiation dose to as low as reasonably achievable (ALARA). [facility]: Dose Right [facility]: CareDose [facility]: Dose Right [facility]: Teradose 4D [facility]: Smart Ocean Lithotripsy RADIATION DOSE: CT Rad equipment meets quality standard of care and radiation dose reduction techniq ues were employed. CTDIvol: 4.8 mGy. DLP: 194 mGy-cm. mGy. LIMITATIONS: No technical limitations. FINDINGS: LUNGS AND PLEURA: Calcified granuloma right upper lobe. Ground-glass nodule right upper l obe 8 mm. Part solid nodule left lower lobe pleural based 6 mm is trace pleural effusions. Centrilo bular emphysema. HILAR AND MEDIASTINAL STRUCTURES: No abnormal nodes. Nasogastric tube. HEART AND VASCULAR STRUCTURES: No aneurysm. No pericardial effusion. UPPER ABDOMEN: See separate report of the CT of the abdomen. THYROID AND OTHER SOFT TISSUES: No masses. No adenopathy. BONES: Nothing acute. HARDWARE: None in the chest. OTHER: No other significant findings. IMPRESSION: COPD. Pulmonary nodules which will need followup. TECHNICAL DOCUMENTATION: JOB ID: [id number] Quality ID # [id number]: Final reports with documentation of one or more dose reduction techniques (e.g., Au tomated exposure control, adjustment of the mA and/or kV according to patient size, use of iterative reconstruction technique) 2010 [employer]- All Rights Reserved Reading location - IP/workstation name: [email or web address]
[2018-08-06] MEDS ORDERED: NORMAL SALINE 1000 ML 1,000 ML IV ONE (20:45)
[2018-08-06] MEDS ORDERED: LISINOPRIL 5 MG TABLET NG ONE (21:00)
[2018-08-06 23:25] LABS: ANION GAP 8 (5-19); BLOOD UREA NITROGEN 5 mg/dL (7-20); CALCIUM 8.1 mg/dL (8.4-10.2); CARBON DIOXIDE 23 mmol/L (22-30); CHLORIDE 103 mmol/L (98-107); GLUCOSE 98 mg/dL (75-110); POTASSIUM 3.6 mmol/L (3.6-5.0); SODIUM 134.4 mmol/L (137-145)
[2018-08-07] MEDS: LEVALBUTEROL HCL NEB 1.25 MG/3 ML AMPUL NEB SCH ×4 (00:34→23:10)
[2018-08-07] MEDS: IPRATROPIUM BROMIDE 0.02% NEB 0.5 MG/2.5 ML AMPUL NEB SCH ×4 (00:35→23:09)
[2018-08-07] MEDS: POTASSIUM CHLORIDE 20 MEQ/50 ML RTU IV SCH ×2 (01:07→04:22)
[2018-08-07 06:47] LABS: ABSOLUTE EOSINOPHILS # (AUTO) 0.1 10^3/uL (0.0-0.6); ABSOLUTE LYMPHOCYTES (AUTO) 1.4 10^3/uL (0.5-4.7); ABSOLUTE MONOCYTES (AUTO) 0.7 10^3/uL (0.1-1.4); ABSOLUTE NEUT (AUTO) 5.6 10^3/uL (1.7-8.2); BASOPHILS % (AUTO) 0.4 % (0-2); EOSINOPHILS % (AUTO) 0.9 % (0-6); HEMATOCRIT 32.8 % (36.0-47.0); HEMOGLOBIN 11.2 g/dL (12.0-15.5); LYMPHOCYTES % (AUTO) 17.7 % (13-45); MEAN CORPUSCULAR HEMOGLOBIN 33.6 pg (27.0-33.4); MEAN CORPUSCULAR HGB CONC 34.3 g/dL (32.0-36.0); MEAN CORPUSCULAR VOLUME 98 fl (80-97); PLATELET COUNT 222 10^3/uL (150-450); RED BLOOD COUNT 3.35 10^6/uL (3.72-5.28); RED CELL DISTRIBUTION WIDTH 13.5 % (11.5-14.0); TOTAL CELLS COUNTED % (AUTO) 100 %; WHITE BLOOD COUNT 7.8 10^3/uL (4.0-10.5)
[2018-08-07 07:23] LABS: ANION GAP 8 (5-19); BLOOD UREA NITROGEN 4 mg/dL (7-20); CALCIUM 8.4 mg/dL (8.4-10.2); CARBON DIOXIDE 24 mmol/L (22-30); CHLORIDE 104 mmol/L (98-107); GLUCOSE 89 mg/dL (75-110); POTASSIUM 4.5 mmol/L (3.6-5.0); SODIUM 136.4 mmol/L (137-145)
[2018-08-07] MEDS: BUDESONIDE NEB 0.5 MG/2 ML AMPUL NEB SCH ×2 (08:53→20:05)
[2018-08-07] MEDS: CITALOPRAM HYDROBROMIDE 20 MG TABLET NG SCH (10:11)
[2018-08-07] MEDS: LISINOPRIL 10 MG TABLET NG SCH (10:11)
[2018-08-07] MEDS: FAMOTIDINE INJ/PF 20 MG/2 ML SDV IV SCH ×2 (10:11→21:08)
[2018-08-07] MEDS: NICOTINE 21 MG/24 HR PATCH.TD24 TD PRN (10:21)
[2018-08-07] MEDS ORDERED: NORMAL SALINE 1000 ML 1,000 ML IV PRN (10:46)
[2018-08-07] MEDS ORDERED: SIMETHICONE 80 MG TAB.CHEW PO PRN (14:32)
[2018-08-07] MEDS: ONDANSETRON HCL INJ/PF 4 MG/2 ML SDV IV PRN (14:49)
[2018-08-07] MEDS: MORPHINE SULFATE 10 MG/ML INJ IV PRN (14:49)
--- NOTE | 2018-08-07 19:42 | PDOC PROGRESS REPORT ---
Subjective Progress Note for:: 08/07/18 Subjective:: Patient is feeling better. Her nasogastric tube is out. She is on clear liquids. Her only complaint is increased gas despite having 2 small bowel movements. Reason For Visit: SMALL BOWEL OBSTRUCTION Physical Exam Vital Signs: Temp Pulse Resp BP Pulse Ox 98.3 F 91 18 142/66 H 94 08/07/18 11:25 08/07/18 14:00 08/07/18 11:25 08/07/18 11:25 08/07/18 11:25 Intake & Output 08/06/18 08/07/18 08/08/18 05:59 06:59 06:59 Intake Total 1600 Output Total 1750 Balance -150 Weight General appearance: PRESENT: no acute distress, cooperative, well-developed Head exam: PRESENT: normocephalic Mouth exam: PRESENT: moist, neck supple, tongue midline Respiratory exam: PRESENT: clear to auscultation raymond, symmetrical, unlabored. ABSENT: accessory muscle use, rales, rhonchi, wheezes Cardiovascular exam: PRESENT: RRR, +S1, +S2 GI/Abdominal exam: PRESENT: normal bowel sounds, soft. ABSENT: distended, tenderness Rectal exam: PRESENT: deferred Musculoskeletal exam: PRESENT: ambulatory Neurological exam: PRESENT: alert, awake, oriented to person, oriented to place, oriented to time, oriented to situation, CN II-XII grossly intact Psychiatric exam: PRESENT: appropriate affect, normal mood. ABSENT: agitated, anxious Focused psych exam: ABSENT: delusional, restlessness Results Laboratory Results: 08/07/18 06:17 08/07/18 06:17 08/06/18 08/07/18 08/07/18 23:06 06:17 06:17 WBC 7.8 RBC 3.35 L Hgb 11.2 L Hct 32.8 L MCV 98 H MCH 33.6 H MCHC 34.3 RDW 13.5 Plt Count 222 Seg Neutrophils % 72.0 Lymphocytes % 17.7 Monocytes % 9.0 Eosinophils % 0.9 Basophils % 0.4 Absolute Neutrophils 5.6 Absolute Lymphocytes 1.4 Absolute Monocytes 0.7 Absolute Eosinophils 0.1 Absolute Basophils 0.0 Sodium 134.4 L 136.4 L Potassium 3.6 4.5 Chloride 103 104 Carbon Dioxide 23 24 Anion Gap 8 8 BUN 5 L 4 L Creatinine 0.57 0.59 Est GFR ( Amer) > 60 > 60 Est GFR (Non-Af Amer) > 60 > 60 Glucose 98 89 Calcium 8.1 L 8.4 Impressions: Chest CT 08/06/18 00:00 IMPRESSION: COPD. Pulmonary nodules which will need followup. KUB X-Ray 08/06/18 00:17 IMPRESSION: Tip of the enteric tube in the stomach copyright 2011 [employer]- All Rights Reserved Abdomen/Pelvis CT 08/06/18 10:00 IMPRESSION: 1. No small bowel obstruction. Wall thickening at distal small bowel loops, may be secondary to enteritis, this can be due to acute infection/inflammation or ischemia. 2. Small ascites. 3. Colonic diverticulosis. 4. Hyperdense material within the gallbladder, may represent vicarious excretion of the intravenous contrast from prior CT abdomen and pelvis. 5. Small bilateral pleural effusions with mild bibasilar atelectasis. 6. 7 mm nodule at the left lower lobe. Follow-up CT as per patient's risk factors. Assessment & Plan - Diagnosis (1) Small bowel obstruction Is this a current diagnosis for this admission?: Yes Plan: Appears to be resolved. She is on clear liquid diet. She informs me that she will be advanced if she tolerates clears. I did order some Mylicon for gas. (2) Hypertension Qualifiers: Hypertension type: essential hypertension Qualified Code(s): I10 - Essential (primary) hypertension Is this a current diagnosis for this admission?: Yes Plan: Her blood pressure is slightly higher than ideal. This could be related to discomfort. No change in her medications at this time. Post discharge she should return to her Altase 10 mg daily. (3) Depression Qualifiers: Depression Type: unspecified Qualified Code(s): F32.9 - Major depressive disorder, single episode, unspecified Is this a current diagnosis for this admission?: Yes Plan: In good spirits. Continue citalopram. (4) Malnutrition Qualifiers: Malnutrition type: protein-calorie malnutrition Protein-calorie malnutrition severity: moderate Qualified Code(s): E44.0 - Moderate protein- calorie malnutrition Is this a current diagnosis for this admission?: Yes Plan: Hopefully once this episode resolves she will be able to increase her diet and gain back some of the weight that she lost over the last 3 weeks. (5) COPD (chronic obstructive pulmonary disease) Qualifiers: Chronic bronchitis type: unspecified Is this a current diagnosis for this admission?: Yes Plan: The diagnosis of chronic obstructive pulmonary disease has not been confirmed by pulmonary function testing. She is not on inhalers at home. At this point there is no reason to start any scheduled inhaler therapy as she is on room air and doing well. (6) Smoker Is this a current diagnosis for this admission?: Yes Plan: The patient is encouraged to stop smoking. - Time Time Spent with patient: Less than 15 minutes Medications reviewed and adjusted accordingly: Yes
--- NOTE | 2018-08-07 19:53 | PDOC PROGRESS REPORT ---
Subjective Progress Note for:: 08/07/18 Subjective:: patient is still c/o cramp-like abdominal symptoms, poor appetite Reason For Visit: SMALL BOWEL OBSTRUCTION Physical Exam Vital Signs: Temp Pulse Resp BP Pulse Ox 98.3 F 91 18 142/66 H 94 08/07/18 11:25 08/07/18 14:00 08/07/18 11:25 08/07/18 11:25 08/07/18 11:25 Intake & Output 08/06/18 08/07/18 08/08/18 05:59 06:59 06:59 Intake Total 1600 Output Total 1750 Balance -150 Weight General appearance: PRESENT: mild distress Respiratory exam: PRESENT: clear to auscultation raymond, unlabored Cardiovascular exam: PRESENT: RRR GI/Abdominal exam: PRESENT: hypoactive bowel sounds, tenderness - diffuse Results Laboratory Results: 08/07/18 06:17 08/07/18 06:17 08/06/18 08/07/18 08/07/18 23:06 06:17 06:17 WBC 7.8 RBC 3.35 L Hgb 11.2 L Hct 32.8 L MCV 98 H MCH 33.6 H MCHC 34.3 RDW 13.5 Plt Count 222 Seg Neutrophils % 72.0 Lymphocytes % 17.7 Monocytes % 9.0 Eosinophils % 0.9 Basophils % 0.4 Absolute Neutrophils 5.6 Absolute Lymphocytes 1.4 Absolute Monocytes 0.7 Absolute Eosinophils 0.1 Absolute Basophils 0.0 Sodium 134.4 L 136.4 L Potassium 3.6 4.5 Chloride 103 104 Carbon Dioxide 23 24 Anion Gap 8 8 BUN 5 L 4 L Creatinine 0.57 0.59 Est GFR ( Amer) > 60 > 60 Est GFR (Non-Af Amer) > 60 > 60 Glucose 98 89 Calcium 8.1 L 8.4 Impressions: Chest CT 08/06/18 00:00 IMPRESSION: COPD. Pulmonary nodules which will need followup. KUB X-Ray 08/06/18 00:17 IMPRESSION: Tip of the enteric tube in the stomach copyright 2011 [employer]- All Rights Reserved Abdomen/Pelvis CT 08/06/18 10:00 IMPRESSION: 1. No small bowel obstruction. Wall thickening at distal small bowel loops, may be secondary to enteritis, this can be due to acute infection/inflammation or ischemia. 2. Small ascites. 3. Colonic diverticulosis. 4. Hyperdense material within the gallbladder, may represent vicarious excretion of the intravenous contrast from prior CT abdomen and pelvis. 5. Small bilateral pleural effusions with mild bibasilar atelectasis. 6. 7 mm nodule at the left lower lobe. Follow-up CT as per patient's risk factors. Assessment & Plan - Diagnosis (1) Malnutrition Qualifiers: Malnutrition type: protein-calorie malnutrition Protein-calorie malnutrition severity: moderate Qualified Code(s): E44.0 - Moderate protein- calorie malnutrition Is this a current diagnosis for this admission?: Yes (2) Small bowel obstruction Is this a current diagnosis for this admission?: Yes (3) Vomiting Qualifiers: Vomiting type: cyclical vomiting Vomiting Intractability: unspecified Nausea presence: with nausea Qualified Code(s): G43.A0 - Cyclical vomiting, not intractable Is this a current diagnosis for this admission?: Yes - Plan Summary Plan Summary: A/ Persistent symptoms of abdominal cramp-like symptoms Poor appetite blood work WNL One small stool this AM P/ Continue IVF NPO after midnight Patient to be evaluated for possible small bowel resection if symptoms persist
[2018-08-08] MEDS: IPRATROPIUM BROMIDE 0.02% NEB 0.5 MG/2.5 ML AMPUL NEB SCH ×3 (07:38→23:56)
[2018-08-08] MEDS: BUDESONIDE NEB 0.5 MG/2 ML AMPUL NEB SCH ×2 (07:38→19:32)
[2018-08-08] MEDS: LEVALBUTEROL HCL NEB 1.25 MG/3 ML AMPUL NEB SCH ×3 (07:38→23:56)
[2018-08-08 07:40] LABS: ABSOLUTE EOSINOPHILS # (AUTO) 0.3 10^3/uL (0.0-0.6); ABSOLUTE LYMPHOCYTES (AUTO) 1.5 10^3/uL (0.5-4.7); ABSOLUTE MONOCYTES (AUTO) 0.6 10^3/uL (0.1-1.4); ABSOLUTE NEUT (AUTO) 3.6 10^3/uL (1.7-8.2); BASOPHILS % (AUTO) 0.6 % (0-2); EOSINOPHILS % (AUTO) 5.5 % (0-6); HEMATOCRIT 34.4 % (36.0-47.0); HEMOGLOBIN 11.8 g/dL (12.0-15.5); LYMPHOCYTES % (AUTO) 24.4 % (13-45); MEAN CORPUSCULAR HEMOGLOBIN 33.6 pg (27.0-33.4); MEAN CORPUSCULAR HGB CONC 34.2 g/dL (32.0-36.0); MEAN CORPUSCULAR VOLUME 98 fl (80-97); MONOCYTES % (AUTO) 10.5 % (3-13); PLATELET COUNT 255 10^3/uL (150-450); RED BLOOD COUNT 3.51 10^6/uL (3.72-5.28); RED CELL DISTRIBUTION WIDTH 13.5 % (11.5-14.0); TOTAL CELLS COUNTED % (AUTO) 100 %; WHITE BLOOD COUNT 6.1 10^3/uL (4.0-10.5)
[2018-08-08 07:57] LABS: ANION GAP 7 (5-19); BLOOD UREA NITROGEN 4 mg/dL (7-20); CALCIUM 8.5 mg/dL (8.4-10.2); CARBON DIOXIDE 27 mmol/L (22-30); CHLORIDE 104 mmol/L (98-107); GLUCOSE 88 mg/dL (75-110); POTASSIUM 3.6 mmol/L (3.6-5.0); SODIUM 137.5 mmol/L (137-145)
[2018-08-08] MEDS: LISINOPRIL 10 MG TABLET NG SCH (09:08)
[2018-08-08] MEDS: FAMOTIDINE INJ/PF 20 MG/2 ML SDV IV SCH ×2 (09:08→21:11)
[2018-08-08] MEDS: CITALOPRAM HYDROBROMIDE 20 MG TABLET NG SCH (09:08)
[2018-08-08] MEDS ORDERED: DIPHENHYDRAMINE HCL 50 MG/ML VIAL ONE (11:50)
[2018-08-08] MEDS ORDERED: EPINEPHRINE INJ 1 MG/10 ML DISP.SYRIN ONE (11:51)
[2018-08-08] MEDS ORDERED: FLUMAZENIL INJ 0.5 MG/5 ML VIAL ONE (11:51)
[2018-08-08] MEDS ORDERED: FENTANYL CITRATE INJ/PF 100 MCG/2 ML AMPUL ONE (11:51)
[2018-08-08] MEDS ORDERED: ONDANSETRON HCL INJ/PF 4 MG/2 ML SDV ONE (11:51)
[2018-08-08] MEDS ORDERED: GLUCAGON,HUMAN RECOMB 1 MG INJ ONE (11:51)
[2018-08-08] MEDS ORDERED: NALOXONE HCL INJ/PF 0.4 MG/1 ML SDV ONE (11:51)
--- NOTE | 2018-08-08 12:19 | PDOC CONSULTATION ---
Consultation Consult Date: 08/07/18 Attending physician:: EMMY CUEVAS Consult reason:: lung nodules History of Present Illness Admission Date/PCP: 08/06/18 00:52 GIUSEPPE GENAO PA-C History of Present Illness: DEB GILL is a 78 year old female, presented with complaints of abdominal pain it is thought that she might have obstructive bowel follow-up subsequent CT scan of the chest showed multiple pulmonary nodules she denies shortness of breath at rest but does admit to some dyspnea on exertion with occasional wheeze she denies frequent cough or hemoptysis her PPD is negative dates unknown. She has no history of chronic lung disease as a child or adolescent. She admits to exposure to passive smoke as a child as well as an adult she has smell for smoked a pack a day for 55 years and she did not have any significant occupational exposure to potential respiratory toxins no pets no recent travel she denies angina-like chest pain sleeps on 3 pillows occasional PND occasional nocturnal cough no edema she is thinks that she snores and she does have restless sleep nocturia 2-3 times per night unrestful sleep as well as excessive daytime somnolence Past Medical History Cardiac Medical History: Reports: Hypertension Pulmonary Medical History: Reports: Chronic Obstructive Pulmonary Disease (COPD) - No PFTs. Diagnosis by smoking history and possibly x-ray EENT Medical History: Reports: Cataracts - Needs to schedule cataract surgery Neurological Medical History: Reports: None Endocrine Medical History: Reports: None Renal/ Medical History: Reports: None Malignancy Medical History: Reports: None GI Medical History: Reports: None Musculoskeltal Medical History: Reports: None Skin Medical History: Reports: None Psychiatric Medical History: Reports: Depression, Tobacco Dependency Traumatic Medical History: Reports: None Hematology: Reports: None Infectious Medical History: Reports: None Past Surgical History Past Surgical History: Reports: Herniorrhaphy, Hysterectomy Social History Information Source: Patient, [facility] Records Lives with: Alone, Other - Smoking Status: Current Every Day Smoker Cigarettes Packs Per Day: 1 Passive smoke exposure as: Both Frequency of Alcohol Use: Rare Hx Recreational Drug Use: No Drugs: None Hx Prescription Drug Abuse: No Do you have pets?: Yes Have you had any respiratory illnesses as a child?: No Have you been exposed to any sick contacts recently?: No Have you had any recent respiratory illnesses?: No Have you travelled outside of [place] in the past 12 months?: No - Advance Directive Resuscitation Status: Full Code Family History Family History: CAD, CVA, Malignancy - Very diffuse history of malignancy. Parental Family History Reviewed: Yes Children Family History Reviewed: Yes Sibling(s) Family History Reviewed.: Yes Medication/Allergy Home Medications: Citalopram Hydrobromide [Celexa 40 mg Tablet] 40 mg PO DAILY 07/29/18 Ramipril [Altace 10 mg Capsule] 10 mg PO DAILY 07/29/18 Allergies/Adverse Reactions: No Known Allergies Allergy (Verified 08/05/18 17:32) Review of Systems Constitutional: ABSENT: night sweats Eyes: ABSENT: visual disturbances Ears: ABSENT: hearing changes Nose, Mouth, and Throat: ABSENT: mouth pain Cardiovascular: ABSENT: palpitations Respiratory: ABSENT: hemoptysis Gastrointestinal: ABSENT: abdominal pain, bloating, coffee ground emesis, hematemesis, hematochezia, melena Genitourinary: ABSENT: dysuria, hematuria Integumentary: ABSENT: pruritus, rash Neurological: ABSENT: abnormal gait, abnormal movements, abnormal speech, focal weakness, frequent falls, lack of coordination, memory loss Psychiatric: ABSENT: hallucinations, homidical ideation, suicidal ideation Endocrine: ABSENT: cold intolerance, heat intolerance, polydipsia, polyuria Hematologic/Lymphatic: ABSENT: easy bruising, lymphadenopathy Physical Exam Vital Signs: Temp Pulse Resp BP Pulse Ox 98.3 F 96 14 154/58 H 93 08/08/18 07:59 08/08/18 07:59 08/08/18 07:59 08/08/18 07:59 08/08/18 07:59 Intake & Output 08/07/18 08/08/18 08/09/18 06:59 06:59 06:59 Intake Total 1840 Output Total 1750 Balance 90 Weight 44 kg General appearance: PRESENT: no acute distress, cooperative, thin. ABSENT: disheveled Head exam: PRESENT: atraumatic, normocephalic Eye exam: PRESENT: conjunctiva pale, EOMI. ABSENT: nystagmus, periorbital swelling Mouth exam: PRESENT: dry mucosa, neck supple, tongue midline Neck exam: ABSENT: carotid bruit, full ROM, JVD, lymphadenopathy, meningismus, tenderness, thyromegaly, tracheal deviation, tracheostomy, other Respiratory exam: PRESENT: decreased breath sounds, prolonged expiratory phas, rhonchi, unlabored. ABSENT: rales, stridor Cardiovascular exam: PRESENT: RRR, +S1, +S2 Pulses: PRESENT: normal radial pulses GI/Abdominal exam: PRESENT: soft. ABSENT: tenderness Extremities exam: ABSENT: calf tenderness, clubbing, joint swelling Musculoskeletal exam: ABSENT: deformity, dislocation Neurological exam: PRESENT: alert, awake Psychiatric exam: PRESENT: appropriate affect Skin exam: PRESENT: dry, warm Results Laboratory Results: 08/08/18 06:27 08/08/18 06:27 08/08/18 08/08/18 06:27 06:27 WBC 6.1 RBC 3.51 L Hgb 11.8 L Hct 34.4 L MCV 98 H MCH 33.6 H MCHC 34.2 RDW 13.5 Plt Count 255 Seg Neutrophils % 59.0 Lymphocytes % 24.4 Monocytes % 10.5 Eosinophils % 5.5 Basophils % 0.6 Absolute Neutrophils 3.6 Absolute Lymphocytes 1.5 Absolute Monocytes 0.6 Absolute Eosinophils 0.3 Absolute Basophils 0.0 Sodium 137.5 Potassium 3.6 Chloride 104 Carbon Dioxide 27 Anion Gap 7 BUN 4 L Creatinine 0.61 Est GFR ( Amer) > 60 Est GFR (Non-Af Amer) > 60 Glucose 88 Calcium 8.5 Impressions: Chest CT 08/06/18 00:00 IMPRESSION: COPD. Pulmonary nodules which will need followup. KUB X-Ray 08/06/18 00:17 IMPRESSION: Tip of the enteric tube in the stomach copyright 2011 [employer]- All Rights Reserved Abdomen/Pelvis CT 08/06/18 10:00 IMPRESSION: 1. No small bowel obstruction. Wall thickening at distal small bowel loops, may be secondary to enteritis, this can be due to acute inf ection/inflammation or ischemia. 2. Small ascites. 3. Colonic diverticulosis. 4. Hyperdense material within the gallbladder, may represent vicarious excretion of the intravenous contrast from prior CT abdomen and pelvis. 5. Small bilateral pleural effusions with mild bibasilar atelectasis. 6. 7 mm nodule at the left lower lobe. Follow-up CT as per patient's risk factors. Assessment & Plan - Diagnosis (1) Lung nodules Is this a current diagnosis for this admission?: Yes Plan: Per Fleischner criteria will follow closely as an outpatient (2) COPD (chronic obstructive pulmonary disease) Qualifiers: Chronic bronchitis type: unspecified Is this a current diagnosis for this admission?: Yes Plan: Generic Name Dose Route Start Last Admin Trade Name Freq PRN Reason Stop Dose Admin Budesonide 0.5 mg 08/06/18 08:00 08/08/18 07:38 Pulmicort Neb 0.5 Mg/2 Ml Ampul NEB 09/05/18 07:59 0.5 mg RTBID IVAN Albuterol 2.5 mg 08/06/18 01:23 08/06/18 20:35 Ventolin 0.083% Neb 2.5 Mg/3 Ml Ampul NEB 09/05/18 01:22 2.5 mg RTQ1HP PRN SHORTNESS OF BREATH Levalbuterol HCl 1.25 mg 08/06/18 08:00 08/08/18 07:38 Xopenex Neb 1.25 Mg/3 Ml Ampul NEB 09/05/18 07:59 1.25 mg RTQ8 IVAN Ipratropium Dyess 0.5 mg 08/06/18 08:00 08/08/18 07:38 Atrovent 0.02% Neb 0.5 Mg/2.5 Ml Ampul NEB 09/05/18 07:59 0.5 mg RTQ8 IVAN (3) Smoker Is this a current diagnosis for this admission?: Yes Plan: Generic Name Dose Route Start Last Admin Trade Name Freq PRN Reason Stop Dose Admin Nicotine 1 each 08/06/18 01:23 08/07/18 10:21 Nicoderm 21 Mg/24 Hr Transderm Patch TD 09/05/18 01:22 1 each DAILYP PRN WITHDRAWAL SYMPTOMS Acid length risk and dangers associated with continued tobacco use thank you very much for allowing me to see Ms. Gill help participate in her care a more effective happy to follow as outpatient for emphysema smoking disorder as well as a pulmonary nodules
[2018-08-08] MEDS: MIDAZOLAM 2 MG/2 ML INJ ONE ×3 (13:15→13:24)
--- NOTE | 2018-08-08 13:39 | PDOC PROGRESS REPORT ---
Subjective Progress Note for:: 08/08/18 Subjective:: Patient says she feels better and is actually passing gas. She did tolerate clear liquids last night was n.p.o. this morning. She is taking minimal pain medicine Reason For Visit: SMALL BOWEL OBSTRUCTION Physical Exam Vital Signs: Temp Pulse Resp BP Pulse Ox 98.3 F 90 18 140/60 H 98 08/08/18 12:01 08/08/18 13:35 08/08/18 13:35 08/08/18 13:35 08/08/18 13:35 Intake & Output 08/07/18 08/08/18 08/09/18 06:59 06:59 06:59 Intake Total 1840 Output Total 1750 Balance 90 Weight 44 kg General appearance: PRESENT: no acute distress GI/Abdominal exam: PRESENT: other - The abdomen is completely benign, soft not distended no peritoneal signs; right groin Results Laboratory Results: 08/08/18 06:27 08/08/18 06:27 08/08/18 08/08/18 06:27 06:27 WBC 6.1 RBC 3.51 L Hgb 11.8 L Hct 34.4 L MCV 98 H MCH 33.6 H MCHC 34.2 RDW 13.5 Plt Count 255 Seg Neutrophils % 59.0 Lymphocytes % 24.4 Monocytes % 10.5 Eosinophils % 5.5 Basophils % 0.6 Absolute Neutrophils 3.6 Absolute Lymphocytes 1.5 Absolute Monocytes 0.6 Absolute Eosinophils 0.3 Absolute Basophils 0.0 Sodium 137.5 Potassium 3.6 Chloride 104 Carbon Dioxide 27 Anion Gap 7 BUN 4 L Creatinine 0.61 Est GFR ( Amer) > 60 Est GFR (Non-Af Amer) > 60 Glucose 88 Calcium 8.5 Impressions: Chest CT 08/06/18 00:00 IMPRESSION: COPD. Pulmonary nodules which will need followup. KUB X-Ray 08/06/18 00:17 IMPRESSION: Tip of the enteric tube in the stomach copyright 2011 [employer]- All Rights Reserved Abdomen/Pelvis CT 08/06/18 10:00 IMPRESSION: 1. No small bowel obstruction. Wall thickening at distal small bowel loops, may be secondary to enteritis, this can be due to acute infection/inflammation or ischemia. 2. Small ascites. 3. Colonic diverticulosis. 4. Hyperdense material within the gallbladder, may represent vicarious excretion of the intravenous contrast from prior CT abdomen and pelvis. 5. Small bilateral pleural effusions with mild bibasilar atelectasis. 6. 7 mm nodule at the left lower lobe. Follow-up CT as per patient's risk factors. Assessment & Plan - Diagnosis (1) Abdominal pain Qualifiers: Abdominal location: generalized Qualified Code(s): R10.84 - Generalized abdominal pain Is this a current diagnosis for this admission?: Yes Plan: IMPression: Generalized abdominal pain improved; associated nausea also. The abdomen at this time is completely benign. Patient states she feels better after receiving Pepcid. Commendations: 1. I reviewed the patient's CT scan findings with Dr. Dodson this morning. In spite of the specific interpretation regarding a thickened small bowel segment, I do not believe the patient needs an exploratory laparoscopy or laparotomy today. She has no fever, no tachycardia no acidosis. 2. I have suggested she undergo endoscopy to rule out occult ulcer gastritis etc. Patient agrees to proceed. (2) Hypertension Qualifiers: Hypertension type: essential hypertension Qualified Code(s): I10 - Essential (primary) hypertension Is this a current diagnosis for this admission?: Yes (3) Lung nodules Is this a current diagnosis for this admission?: Yes (4) Malnutrition Qualifiers: Malnutrition type: protein-calorie malnutrition Protein-calorie malnutrition severity: moderate Qualified Code(s): E44.0 - Moderate protein- calorie malnutrition Is this a current diagnosis for this admission?: Yes (5) Smoker Is this a current diagnosis for this admission?: Yes
--- NOTE | 2018-08-08 13:46 | Operative Report ---
Operative Report DATE OF SURGERY: 08/08/18 PREOPERATIVE DIAGNOSIS: Abdominal pain; nausea and bloating. Status post right femoral hernia with reduction of incarcerated small bowel POSTOPERATIVE DIAGNOSIS: Same with diffuse gastritis OPERATION: 1. Esophagogastroduodenoscopy. 2. Cold mucosal biopsy of gastric fundus SURGEON: BOO OROZCO ANESTHESIA: Moderate Sedation TISSUE REMOVED OR ALTERED: Mucosal biopsy COMPLICATIONS: None ESTIMATED BLOOD LOSS: Scant INTRAOPERATIVE FINDINGS: See below PROCEDURE: The patient was taken from the floor to the endoscopy suite where appropriate monitoring devices were attached, and positioning of equipment established. Surgical plan and surgical timeout were conducted. Appropriate level of conscious sedation induced with Versed and fentanyl. The flexible adult upper endoscope was advanced to the oropharynx, down the esophagus through the stomach into the duodenum. This was tolerated well by the patient. There was no evidence of tumor stricture active bleeding, or clot. The pylorus was unremarkable. The stomach was significant for diffuse, punctate hemorrhagic appearing edematous lesions, confined to the mucosa. One was biopsied for ASHKAN testing as well as histologic analysis. The remainder of stomach was unremarkable. The Z line was at 36 cm from the incisor. There was no significant hiatal hernia. The scope was brought back to the lower esophagus midesophagus in the upper esophagus. No significant pathology identified. The scope was brought onto the patient's oropharynx. She tolerated the procedure well. Impression diffuse gastritis status post EGD Recommendations continue nonoperative management, maximum medical therapy; proton pump inhibitor added to medical regimen.
--- NOTE | 2018-08-08 14:05 | PDOC PROGRESS REPORT ---
Subjective Progress Note for:: 08/08/18 Subjective:: This is a 78 yr old female with a PMH of HTN, depression, COPD and malnutrition who was admitted due to small bowel obstruction. Hospitalist service was consulted for comanagement of her other medical issues. No acute event overnight. This morning, she says she feels better and her abdominal pain has improved. She is passing out gas. All her medical issues are stable and well controlled at the moment. If there is no acute medical issue tonight, medical service will sign out tomorrow and will be more than happy to see this patient again if any issue arises. Reason For Visit: SMALL BOWEL OBSTRUCTION Physical Exam Vital Signs: Temp Pulse Resp BP Pulse Ox 98.3 F 95 18 125/61 98 08/08/18 12:01 08/08/18 13:55 08/08/18 13:55 08/08/18 13:55 08/08/18 13:55 Intake & Output 08/07/18 08/08/18 08/09/18 06:59 06:59 06:59 Intake Total 1840 Output Total 1750 Balance 90 Weight 97 lb 0.054 oz General appearance: PRESENT: no acute distress, well-developed, well-nourished Head exam: PRESENT: atraumatic, normocephalic Eye exam: PRESENT: conjunctiva pink, EOMI, PERRLA. ABSENT: scleral icterus Ear exam: PRESENT: normal external ear exam Mouth exam: PRESENT: moist, tongue midline Neck exam: ABSENT: carotid bruit, JVD, lymphadenopathy, thyromegaly Respiratory exam: PRESENT: clear to auscultation raymond. ABSENT: rales, rhonchi, wheezes Cardiovascular exam: PRESENT: RRR. ABSENT: diastolic murmur, rubs, systolic murmur Pulses: PRESENT: normal dorsalis pedis pul GI/Abdominal exam: PRESENT: normal bowel sounds, soft. ABSENT: distended, guarding, mass, organolmegaly, rebound, tenderness Rectal exam: PRESENT: deferred Extremities exam: PRESENT: full ROM. ABSENT: calf tenderness, clubbing, pedal edema Neurological exam: PRESENT: alert, awake, oriented to person, oriented to place, oriented to time, oriented to situation, CN II-XII grossly intact. ABSENT: motor sensory deficit Results Laboratory Results: 08/08/18 06:27 08/08/18 06:27 08/08/18 08/08/18 06:27 06:27 WBC 6.1 RBC 3.51 L Hgb 11.8 L Hct 34.4 L MCV 98 H MCH 33.6 H MCHC 34.2 RDW 13.5 Plt Count 255 Seg Neutrophils % 59.0 Lymphocytes % 24.4 Monocytes % 10.5 Eosinophils % 5.5 Basophils % 0.6 Absolute Neutrophils 3.6 Absolute Lymphocytes 1.5 Absolute Monocytes 0.6 Absolute Eosinophils 0.3 Absolute Basophils 0.0 Sodium 137.5 Potassium 3.6 Chloride 104 Carbon Dioxide 27 Anion Gap 7 BUN 4 L Creatinine 0.61 Est GFR ( Amer) > 60 Est GFR (Non-Af Amer) > 60 Glucose 88 Calcium 8.5 Impressions: Chest CT 08/06/18 00:00 IMPRESSION: COPD. Pulmonary nodules which will need followup. KUB X-Ray 08/06/18 00:17 IMPRESSION: Tip of the enteric tube in the stomach copyright 2011 [email or web address]- All Rights Reserved Abdomen/Pelvis CT 08/06/18 10:00 IMPRESSION: 1. No small bowel obstruction. Wall thickening at distal small bowel loops, may be secondary to enteritis, this can be due to acute infection/inflammation or ischemia. 2. Small ascites. 3. Colonic diverticulosis. 4. Hyperdense material within the gallbladder, may represent vicarious excretion of the intravenous contrast from prior CT abdomen and pelvis. 5. Small bilateral pleural effusions with mild bibasilar atelectasis. 6. 7 mm nodule at the left lower lobe. Follow-up CT as per patient's risk factors. Assessment & Plan - Diagnosis (1) Small bowel obstruction Is this a current diagnosis for this admission?: Yes Plan: Primary service managing. (2) Hypertension Qualifiers: Hypertension type: essential hypertension Qualified Code(s): I10 - Essential (primary) hypertension Is this a current diagnosis for this admission?: Yes Plan: Controlled. Continue lisinopril. May be discharged back on ramipril upon discharge. (3) Depression Qualifiers: Depression Type: unspecified Qualified Code(s): F32.9 - Major depressive disorder, single episode, unspecified Is this a current diagnosis for this admission?: Yes Plan: Stable. Continue citalopram. (4) COPD (chronic obstructive pulmonary disease) Qualifiers: Chronic bronchitis type: unspecified Is this a current diagnosis for this admission?: Yes Plan: Not in exacerbation. Breathing treatments as needed. - Time Time Spent with patient: 15-24 minutes
[2018-08-09 05:30] LABS: ABSOLUTE EOSINOPHILS # (AUTO) 0.3 10^3/uL (0.0-0.6); ABSOLUTE LYMPHOCYTES (AUTO) 1.3 10^3/uL (0.5-4.7); ABSOLUTE MONOCYTES (AUTO) 0.6 10^3/uL (0.1-1.4); ABSOLUTE NEUT (AUTO) 4.6 10^3/uL (1.7-8.2); BASOPHILS % (AUTO) 0.5 % (0-2); EOSINOPHILS % (AUTO) 4.6 % (0-6); HEMATOCRIT 35.8 % (36.0-47.0); HEMOGLOBIN 12.1 g/dL (12.0-15.5); MEAN CORPUSCULAR HGB CONC 33.9 g/dL (32.0-36.0); MEAN CORPUSCULAR VOLUME 97 fl (80-97); MONOCYTES % (AUTO) 8.7 % (3-13); PLATELET COUNT 243 10^3/uL (150-450); RED BLOOD COUNT 3.68 10^6/uL (3.72-5.28); RED CELL DISTRIBUTION WIDTH 13.4 % (11.5-14.0); SEGMENTED NEUTROPHILS % (AUTO) 67.2 % (42-78); TOTAL CELLS COUNTED % (AUTO) 100 %; WHITE BLOOD COUNT 6.8 10^3/uL (4.0-10.5)
[2018-08-09 05:52] LABS: ANION GAP 8 (5-19); BLOOD UREA NITROGEN 3 mg/dL (7-20); CALCIUM 8.4 mg/dL (8.4-10.2); CARBON DIOXIDE 26 mmol/L (22-30); CHLORIDE 102 mmol/L (98-107); GLUCOSE 87 mg/dL (75-110); POTASSIUM 3.3 mmol/L (3.6-5.0); SODIUM 136.3 mmol/L (137-145)
[2018-08-09] MEDS: BUDESONIDE NEB 0.5 MG/2 ML AMPUL NEB SCH (08:01)
[2018-08-09] MEDS: LEVALBUTEROL HCL NEB 1.25 MG/3 ML AMPUL NEB SCH (08:01)
[2018-08-09] MEDS: IPRATROPIUM BROMIDE 0.02% NEB 0.5 MG/2.5 ML AMPUL NEB SCH (08:01)
[2018-08-09 08:27] VITALS: BP 169/73
--- NOTE | 2018-08-09 09:14 | Discharge Summary ---
Discharge Summary (SDC) - Discharge Final Diagnosis: abdominal pain Date of Surgery: 08/08/18 Condition: Fair Treatment or Instructions: full liquid diet\ increase oral clear liquids ambulate f/u with surgery 1 wk Referrals: GIUSEPPE GENAO PA-C [Primary Care Provider] - Follow up as needed Discharge Diet: Full Liquids Discharge Activity: Activity As Tolerated, No Lifting Over 10 Pounds Report the Following to Your Physician Immediately: Shortness of Breath, Nausea, Vomiting, Increase in Pain
[2018-08-09] MEDS ORDERED: POTASSIUM CHLORIDE 10 MEQ CAPSULE.ER PO ONE (09:30)
--- NOTE | 2018-08-09 09:54 | PDOC PROGRESS REPORT ---
Subjective Progress Note for:: 08/09/18 Subjective:: This is a 78 yr old female with a PMH of HTN, depression, COPD and malnutrition who was admitted due to small bowel obstruction. Hospitalist service was consulted for comanagement of her other medical issues. 08/08: This morning, she says she feels better and her abdominal pain has improved. She is passing out gas. All her medical issues are stable and well controlled at the moment. If there is no acute medical issue tonight, medical service will sign out tomorrow and will be more than happy to see this patient again if any issue arises. 08/09: No acute event overnight. Denies abdominal pain. She had 2 BM overnight. No nausea/vomiting. She is tolerating clears but says she does not want to eat much as she does not like the food. Potassium was slightly low at 3.3. Will be replaced with 40 meqs PO. Reason For Visit: SMALL BOWEL OBSTRUCTION Physical Exam Vital Signs: Temp Pulse Resp BP Pulse Ox 98.3 F 92 18 169/73 H 93 08/09/18 09:20 08/09/18 09:20 08/09/18 09:20 08/09/18 09:20 08/09/18 09:20 Intake & Output 08/08/18 08/09/18 08/10/18 06:59 06:59 06:59 Intake Total 1840 756 Output Total 1750 Balance 90 756 Weight 97 lb 0.054 oz 109 lb 5.588 oz General appearance: PRESENT: no acute distress, well-developed, well-nourished Head exam: PRESENT: atraumatic, normocephalic Eye exam: PRESENT: conjunctiva pink, EOMI, PERRLA. ABSENT: scleral icterus Ear exam: PRESENT: normal external ear exam Mouth exam: PRESENT: moist, tongue midline Neck exam: ABSENT: carotid bruit, JVD, lymphadenopathy, thyromegaly Respiratory exam: PRESENT: clear to auscultation raymond. ABSENT: rales, rhonchi, wheezes Cardiovascular exam: PRESENT: RRR. ABSENT: diastolic murmur, rubs, systolic murmur Pulses: PRESENT: normal dorsalis pedis pul Vascular exam: PRESENT: normal capillary refill GI/Abdominal exam: PRESENT: normal bowel sounds, soft. ABSENT: distended, guarding, mass, organolmegaly, rebound, tenderness Rectal exam: PRESENT: deferred Neurological exam: PRESENT: alert, awake, oriented to person, oriented to place, oriented to time, oriented to situation, CN II-XII grossly intact. ABSENT: motor sensory deficit Results Laboratory Results: 08/09/18 04:38 08/09/18 04:38 08/09/18 08/09/18 08/09/18 04:38 04:38 04:38 WBC 6.8 RBC 3.68 L Hgb 12.1 Hct 35.8 L MCV 97 MCH 33.0 MCHC 33.9 RDW 13.4 Plt Count 243 Seg Neutrophils % 67.2 Lymphocytes % 19.0 Monocytes % 8.7 Eosinophils % 4.6 Basophils % 0.5 Absolute Neutrophils 4.6 Absolute Lymphocytes 1.3 Absolute Monocytes 0.6 Absolute Eosinophils 0.3 Absolute Basophils 0.0 Sodium 136.3 L Potassium 3.3 L Chloride 102 Carbon Dioxide 26 Anion Gap 8 BUN 3 L Creatinine 0.61 Est GFR ( Amer) > 60 Est GFR (Non-Af Amer) > 60 Glucose 87 Calcium 8.4 Magnesium 1.9 Impressions: Chest CT 08/06/18 00:00 IMPRESSION: COPD. Pulmonary nodules which will need followup. KUB X-Ray 08/06/18 00:17 IMPRESSION: Tip of the enteric tube in the stomach copyright 2011 [facility]- All Rights Reserved Abdomen/Pelvis CT 08/06/18 10:00 IMPRESSION: 1. No small bowel obstruction. Wall thickening at distal small bowel loops, may be secondary to enteritis, this can be due to acute infection/inflammation or ischemia. 2. Small ascites. 3. Colonic diverticulosis. 4. Hyperdense material within the gallbladder, may represent vicarious excretion of the intravenous contrast from prior CT abdomen and pelvis. 5. Small bilateral pleural effusions with mild bibasilar atelectasis. 6. 7 mm nodule at the left lower lobe. Follow-up CT as per patient's risk factors. Assessment & Plan - Diagnosis (1) Small bowel obstruction Is this a current diagnosis for this admission?: Yes Plan: Resolved. Primary service managing. (2) Hypertension Qualifiers: Hypertension type: essential hypertension Qualified Code(s): I10 - Essential (primary) hypertension Is this a current diagnosis for this admission?: Yes Plan: Controlled. Continue lisinopril. May be discharged back on ramipril upon discharge. (3) Depression Qualifiers: Depression Type: unspecified Qualified Code(s): F32.9 - Major depressive disorder, single episode, unspecified Is this a current diagnosis for this admission?: Yes Plan: Stable. Continue citalopram. (4) COPD (chronic obstructive pulmonary disease) Qualifiers: Chronic bronchitis type: unspecified Is this a current diagnosis for this admission?: Yes Plan: Not in exacerbation. Breathing treatments as needed. (5) Hypokalemia Is this a current diagnosis for this admission?: Yes Plan: Will be replaced with 40 meqs PO.
[2018-08-09] MEDS ORDERED: (PENDING PHARMACY ID) (Citalopram Hydrobromide [Celexa 40 Mg Tablet] 40 MG) PO SCH (10:00)
[2018-08-09] MEDS: FAMOTIDINE INJ/PF 20 MG/2 ML SDV IV SCH (10:09)
[2018-08-09] MEDS: LISINOPRIL 10 MG TABLET NG SCH (10:09)
[2018-08-09] MEDS: CITALOPRAM HYDROBROMIDE 20 MG TABLET NG SCH (10:09)
--- NOTE | 2018-08-09 12:33 | DISCHARGE SUMMARY E ---
Discharge Summary NAME: DEB GILL : 1940 AGE: 78Y ADMITTED: 08/06/2018 DISCHARGED: 08/09/2018 ADMISSION DIAGNOSES: 1. Malnutrition. 2. Rule out small bowel obstruction. 3. Vomiting. DISCHARGE DIAGNOSIS: Abdominal pain and nausea and vomiting, resolved. REASON FOR HOSPITALIZATION/HOSPITAL COURSE: This is a 78-year-old female who presented to the emergency room on 08/05/2018, about 2 weeks after a repair of an incarcerated right femoral hernia. During the repair a loop of small bowel was noted to be incarcerated, slightly ischemic, but this was not resected. It was released and it returned to normal viability prior to closure at that time. She was discharged home 3 days later. She had been tolerating oral liquids only. She returned to the operating room on 08/05/2018 complaining of little flatulence and no defecation with complaints of crampy abdominal pain and constipation. She underwent a readmission for observation and IV hydration and the administration of antinausea medications. She was started on a liquid diet, which she tolerated throughout her hospital course. She underwent a CT scan, which showed good flow throughout her small intestine without any evidence of small bowel obstruction. There was questionable slight thickening of her distal small bowel loop. She was monitored in the hospital for approximately 3 days at which time she was continued on her diet. Because of upper abdominal pain she underwent an upper endoscopy and she was noted to have some gastritis. Subsequent to that she was started back on her diet, which she tolerated well and had normal bowel movements the morning of discharge. At this time she is afebrile with stable vital signs. She is tolerating a full liquid diet. She is having normal bowel function and her abdominal pain has resolved. She will continue on her oral Colace medication at home and her other home medications. She will follow up with [facility] 1 week after discharge. FINAL DIAGNOSES: 1. Abdominal pain. 2. Constipation. 3. Nausea, vomiting. 4. Disability approximately 1 week. DICTATING PHYSICIAN: ANABELLA CORNELL M.D. [id number] PHY#: [id number] ID: [id number] JOB#: [id number] ACCT: [id number] cc:Sony PUGA M.D. >
== END 2018-08-09 12:00 | disposition home or self-care (01) | DRG 392 ==
LOC: ER 17:16 → EH 08-06 00:45 → UNDOADMIN 08-06 00:45 → EH 08-06 00:52 → 3S 08-06 04:20 → 4N 08-07 18:02
PROVIDERS: ADMIT Surgery; ATTEND Surgery
PROC: 0DB68ZX Excision of Stomach, Via Natural or Artificial Opening Endoscopic, Diagnostic (ICD-10-PCS; principal; 2018-08-08 13:00)
DX: K29.70 Gastritis, unspecified, without bleeding (principal); E44.0 Moderate protein-calorie malnutrition; R91.1 Solitary pulmonary nodule; R11.2 Nausea with vomiting, unspecified; E87.6 Hypokalemia; R10.9 Unspecified abdominal pain; K59.00 Constipation, unspecified; I10 Essential (primary) hypertension; J44.9 Chronic obstructive pulmonary disease, unspecified; H26.9 Unspecified cataract; F32.9 Major depressive disorder, single episode, unspecified; Z90.710 Acquired absence of both cervix and uterus; F17.210 Nicotine dependence, cigarettes, uncomplicated; Z82.3 Family history of stroke; Z82.49 Family history of ischemic heart disease and other diseases of the circulatory system; Z88.8 Allergy status to other drugs, medicaments and biological substances; Z79.899 Other long term (current) drug therapy; Z98.890 Other specified postprocedural states
CPT/HCPCS: 36415; 43239; 71250; 74018; 74176; 74177; 80048; 80053; 82962; 83690; 83735; 85025; 88305; 93005; 93010; 94640; 96361; 96374; 96375; 99285; J0171; J1200; J1610; J2250; J2270; J2310; J2405; J3010; J3480; J3490; J7030; S0028

== ENCOUNTER 2018-08-17 08:09 | Emergency (ER) | payer MEDICARE, OTHER ==
[2018-08-17] MEDS ORDERED: NORMAL SALINE 1000 ML 1,000 ML IV ONE (08:30)
[2018-08-17] MEDS ORDERED: ONDANSETRON HCL INJ/PF 4 MG/2 ML SDV IV ONE (08:30)
--- NOTE | 2018-08-17 08:33 | ER Document Report ---
ED GI/ - General Chief Complaint: Abdominal Pain Stated Complaint: ABDOMINAL PAIN Time Seen by Provider: 08/17/18 08:20 Primary Care Provider: GIUSEPPE GENAO PA-C [NO LOCAL MD] - Follow up as needed BOO OROZCO MD [Primary Care Provider] - Follow up in 3-5 days Mode of Arrival: Ambulatory Information source: Patient Notes: Patient presents reporting abdominal pain that started last night around 8 PM to the lower pelvic area. Patient reports nausea and vomiting having vomited 7 times this morning. Last bowel movement was 2 days ago. Patient denies any ur inary symptoms or fever. Patient states that she did have surgery for a femoral hernia on 07/12/2018 and then had a hospital readmission after having vomiting on 07/29/18 and partial bowel obstruction on 08/06/18. TRAVEL OUTSIDE OF THE [place] IN LAST 30 DAYS: No - HPI Patient complains to provider of: Abdominal pain, Vomiting. No: Diarrhea Onset: Yesterday Timing/Duration: Persistent Quality of pain: Achy, Sharp Pain Level: 3 Vaginal bleeding (Compared to normal period): None Associated symptoms: Loss of appetite, Nausea, Vomiting. denies: Diarrhea, Dysuria, Fever, Urinary hesitancy, Urinary frequency, Urinary retention, Urinary urgency Exacerbated by: Food Relieved by: Denies Similar symptoms previously: Yes Recently seen / treated by doctor: Yes - Related Data Allergies/Adverse Reactions: No Known Allergies Allergy (Verified 08/17/18 08:11) Past Medical History - General Information source: Patient - Social History Smoking Status: Current Every Day Smoker Chew tobacco use (# tins/day): No Frequency of alcohol use: Rare Drug Abuse: None Lives with: Alone Family History: CAD, CVA, Malignancy - Very diffuse history of malignancy. Patient has suicidal ideation: No Patient has homicidal ideation: No - Past Medical History Cardiac Medical History: Reports: Hx Hypertension Pulmonary Medical History: Reports: Hx COPD - No PFTs. Diagnosis by smoking history and possibly x-ray Neurological Medical History: Denies: Hx Seizures Renal/ Medical History: Denies: Hx Peritoneal Dialysis GI Medical History: Reports: Hx Gastritis Psychiatric Medical History: Reports: Hx Depression - anxiety Past Surgical History: Reports: Hx Abdominal Surgery - hernia repair, Hx Bowel Surgery, Hx Herniorrhaphy, Hx Hysterectomy - Immunizations Immunizations up to date: Yes Hx Diphtheria, Pertussis, Tetanus Vaccination: Yes Review of Systems - Review of Systems Constitutional: No symptoms reported. denies: Fever, Recent illness EENT: No symptoms reported Cardiovascular: No symptoms reported. denies: Chest pain Respiratory: No symptoms reported. denies: Cough, Short of breath Gastrointestinal: Abdominal pain, Nausea, Vomiting, Poor appetite. denies: Diarrhea Genitourinary: No symptoms reported. denies: Dysuria, Flank pain Female Genitourinary: No symptoms reported Musculoskeletal: No symptoms reported. denies: Back pain Skin: No symptoms reported Hematologic/Lymphatic: No symptoms reported Neurological/Psychological: No symptoms reported Physical Exam - Vital signs Vitals: Temp Pulse Resp BP Pulse Ox 98.0 F 90 18 128/62 H 95 08/17/18 08:13 08/17/18 08:13 08/17/18 08:13 08/17/18 08:13 08/17/18 08:13 - General General appearance: Appears well, Alert In distress: None - HEENT Head: Normocephalic, Atraumatic Eyes: Normal Conjunctiva: Normal Nasal: Normal Mouth/Lips: Normal Mucous membranes: Normal Neck: Normal, Supple. No: Lymphadenopathy - Respiratory Respiratory status: No respiratory distress Chest status: Nontender Breath sounds: Normal. No: Rales, Rhonchi, Stridor, Wheezing Chest palpation: Normal - Cardiovascular Rhythm: Regular Heart sounds: S1 appreciated, S2 appreciated - Abdominal Inspection: Healed incision - Healed incision to right inguinal area, Other - small ventral hernia able to be reduced Distension: No distension Bowel sounds: Hypoactive Tenderness: Tender - Lower pelvic tenderness. No: McBurney's point, Smalls's sign, Guarding Organomegaly: No organomegaly - Back Back: Normal, Nontender. No: CVA tenderness - Extremities General upper extremity: Normal inspection, Normal ROM General lower extremity: Normal inspection, Normal ROM - Neurological Neuro grossly intact: Yes Cognition: Normal Camryn Coma Scale Eye Opening: Spontaneous Camryn Coma Scale Verbal: Oriented Camryn Coma Scale Motor: Obeys Commands Camryn Coma Scale Total: 15 - Psychological Associated symptoms: Normal affect, Normal mood - Skin Skin Temperature: Warm Skin Moisture: Dry Skin Color: Normal Course - Re-evaluation Re-evalutation: 08/17/18 09:[address] Beltran regarding patient presentation. Does not feel that patient has a bowel obstruction but does state that patient will need additional imaging other than a KUB. 08/17/18 13:30 Dr Zavala consulted, to bedside for examination. No acute findings noted on CT scan. No concern for bowel obstruction at this time. Patient tolerating oral fluids without emesis. Recommends having patient take her pain medication as well as a stool softener and giving her short course of antiemetic medication. Patient presents with abdominal pain without signs of peritonitis or other life- threatening or serious etiology. Patient appears stable for discharge and has been instructed to return immediately if the symptoms worsen in any way for reevaluation. The patient has been instructed to return if the symptoms worsen or change in any way. 08/17/18 Patient reports that she only has a few pain tablets at home and is requesting a prescription for a few additional tablets. Review of patient's previous admission as well as controlled substance database does not demonstrate that patient has been on any narcotic pain medication. Will write for short course of tramadol. Patient encouraged to take a stool softener [id number] when she is taking pain medication. - Vital Signs Vital signs: Temp Pulse Resp BP Pulse Ox 98.3 F 75 18 158/63 H 97 08/17/18 13:14 08/17/18 13:14 08/17/18 08:13 08/17/18 13:14 08/17/18 13:14 - Laboratory Result Diagrams: 08/17/18 08:39 08/17/18 08:39 Laboratory results interpreted by me: 08/17/18 08/17/18 08/17/18 08:39 08:39 10:03 WBC 12.0 H Absolute Neutrophils 8.9 H Carbon Dioxide 32 H Glucose 114 H Lipase 17.7 L Urine Blood SMALL H Labs- Entire Visit 08/17/18 08/17/18 08/17/18 08:39 08:39 08:39 WBC 12.0 H RBC 4.37 Hgb 14.3 Hct 42.5 MCV 97 MCH 32.7 MCHC 33.6 RDW 13.1 Plt Count 337 Seg Neutrophils % 74.5 Lymphocytes % 18.2 Monocytes % 6.3 Eosinophils % 0.3 Basophils % 0.7 Absolute Neutrophils 8.9 H Absolute Lymphocytes 2.2 Absolute Monocytes 0.8 Absolute Eosinophils 0.0 Absolute Basophils 0.1 Sodium 138.2 Potassium 4.2 Chloride 99 Carbon Dioxide 32 H Anion Gap 7 BUN 14 Creatinine 0.86 Est GFR ( Amer) > 60 Est GFR (Non-Af Amer) > 60 Glucose 114 H Lactic Acid 1.2 Calcium 9.0 Total Bilirubin 0.5 Direct Bilirubin 0.2 Neonat Total Bilirubin Not Reportable Neonat Direct Bilirubin Not Reportable Neonat Indirect Bili Not Reportable AST 29 ALT 26 Alkaline Phosphatase 62 Total Protein 6.9 Albumin 3.9 Lipase 17.7 L Urine Color Urine Appearance Urine pH Ur Specific [place] Urine Protein Urine Glucose (UA) Urine Ketones Urine Blood Urine Nitrite Urine Bilirubin Urine Urobilinogen Ur Leukocyte Esterase Urine WBC (Auto) Urine RBC (Auto) Squamous Epi Cells Auto Urine Mucus (Auto) Urine Ascorbic Acid 08/17/18 10:03 WBC RBC Hgb Hct MCV MCH MCHC RDW Plt Count Seg Neutrophils % Lymphocytes % Monocytes % Eosinophils % Basophils % Absolute Neutrophils Absolute Lymphocytes Absolute Monocytes Absolute Eosinophils Absolute Basophils Sodium Potassium Chloride Carbon Dioxide Anion Gap BUN Creatinine Est GFR ( Amer) Est GFR (Non-Af Amer) Glucose Lactic Acid Calcium Total Bilirubin Direct Bilirubin Neonat Total Bilirubin Neonat Direct Bilirubin Neonat Indirect Bili AST ALT Alkaline Phosphatase Total Protein Albumin Lipase Urine Color STRAW Urine Appearance CLEAR Urine pH 7.0 Ur Specific [place] 1.004 Urine Protein NEGATIVE Urine Glucose (UA) NEGATIVE Urine Ketones NEGATIVE Urine Blood SMALL H Urine Nitrite NEGATIVE Urine Bilirubin NEGATIVE Urine Urobilinogen NEGATIVE Ur Leukocyte Esterase NEGATIVE Urine WBC (Auto) 1 Urine RBC (Auto) 1 Squamous Epi Cells Auto <1 Urine Mucus (Auto) RARE Urine Ascorbic Acid NEGATIVE - Diagnostic Test Radiology reviewed: Reports reviewed Discharge - Discharge Clinical Impression: Vomiting Qualifiers: Vomiting type: unspecified Vomiting Intractability: non-intractable Nausea presence: unspecified Qualified Code(s): R11.10 - Vomiting, unspecified Abdominal pain Qualifiers: Abdominal location: lower abdomen, unspecified Qualified Code(s): R10.30 - Lower abdominal pain, unspecified Condition: Stable Disposition: HOME, SELF-CARE Instructions: Abdominal Pain ([facility]), Antinausea Medication ([facility]) Additional Instructions: Return immediately for any new or worsening symptoms Followup with your primary care provider, call tomorrow to make a followup appointment Take a stool softener such as Colace [id number] as directed Follow-up with your surgeon for recheck as planned Prescriptions: Ondansetron HCl [Zofran 4 mg Tablet] 1 tab PO Q6 PRN #10 tablet PRN Reason: Tramadol HCl [Ultram 50 mg Tablet] 50 mg PO ASDIR PRN #10 tablet PRN Reason: Referrals: GIUSEPPE GENAO PA-C [NO LOCAL MD] - Follow up as needed BOO OROZCO MD [Primary Care Provider] - Follow up in 3-5 days
[2018-08-17 08:52] LABS: ABSOLUTE BASOPHILS # (AUTO) 0.1 10^3/uL (0.0-0.2); ABSOLUTE LYMPHOCYTES (AUTO) 2.2 10^3/uL (0.5-4.7); ABSOLUTE MONOCYTES (AUTO) 0.8 10^3/uL (0.1-1.4); ABSOLUTE NEUT (AUTO) 8.9 10^3/uL (1.7-8.2); BASOPHILS % (AUTO) 0.7 % (0-2); EOSINOPHILS % (AUTO) 0.3 % (0-6); HEMATOCRIT 42.5 % (36.0-47.0); HEMOGLOBIN 14.3 g/dL (12.0-15.5); LYMPHOCYTES % (AUTO) 18.2 % (13-45); MEAN CORPUSCULAR HEMOGLOBIN 32.7 pg (27.0-33.4); MEAN CORPUSCULAR HGB CONC 33.6 g/dL (32.0-36.0); MEAN CORPUSCULAR VOLUME 97 fl (80-97); MONOCYTES % (AUTO) 6.3 % (3-13); PLATELET COUNT 337 10^3/uL (150-450); RED BLOOD COUNT 4.37 10^6/uL (3.72-5.28); RED CELL DISTRIBUTION WIDTH 13.1 % (11.5-14.0); SEGMENTED NEUTROPHILS % (AUTO) 74.5 % (42-78); TOTAL CELLS COUNTED % (AUTO) 100 %
--- NOTE | 2018-08-17 09:01 | RADIOLOGY REPORT (SQ) ---
EXAM DESCRIPTION: KUB/ABDOMEN (SINGLE VIEW) COMPLETED DATE/TIME: 08/17/2018 8:48 am REASON FOR STUDY: pelvic pain, vomiting COMPARISON: 08/06/2018 NUMBER OF VIEWS: One view. TECHNIQUE: Supine radiographic image of the abdomen acquired. LIMITATIONS: None. FINDINGS: BOWEL GAS PATTERN: There are scattered, gas-filled, nondistended loops of small bowel and colon about the abdomen, with scattered gas present to the distal colon. No free air in the abdomen on supine radiographs. CALCIFICATIONS: No suspicious calcifications. SOFT TISSUES: No gross mass or suggestion of organomegaly. HARDWARE: None in the abdomen. BONES: No acute fracture. No worrisome bone lesions. OTHER: No other significant finding. IMPRESSION: There are scattered, gas-filled, nondistended loops of small bowel and colon about the a bdomen, with scattered gas present to the distal colon. No free air in the abdomen on supine radiogr aphs. TECHNICAL DOCUMENTATION: JOB ID: [id number] [employer]- All Rights Reserved Reading location - IP/workstation name: [email or web address]
[2018-08-17 09:05] LABS: ALANINE AMINOTRANSFERASE 26 U/L (9-52); ALBUMIN 3.9 g/dL (3.5-5.0); ALKALINE PHOSPHATASE 62 U/L (38-126); ANION GAP 7 (5-19); ASPARTATE AMINO TRANSFERASE 29 U/L (14-36); BILIRUBIN,DIRECT 0.2 mg/dL (0.0-0.4); BILIRUBIN,TOTAL 0.5 mg/dL (0.2-1.3); BLOOD UREA NITROGEN 14 mg/dL (7-20); CARBON DIOXIDE 32 mmol/L (22-30); CHLORIDE 99 mmol/L (98-107); GLUCOSE 114 mg/dL (75-110); LIPASE 17.7 U/L (23-300); POTASSIUM 4.2 mmol/L (3.6-5.0); SODIUM 138.2 mmol/L (137-145); TOTAL PROTEIN 6.9 g/dL (6.3-8.2)
[2018-08-17] MEDS ORDERED: FENTANYL CITRATE INJ/PF 100 MCG/2 ML AMPUL IV ONE (09:46)
[2018-08-17 10:18] LABS: APPEARANCE,URINE CLEAR; BILIRUBIN,URINE NEGATIVE (NEGATIVE); COLOR,URINE STRAW; GLUCOSE, URINE NEGATIVE (NEGATIVE); KETONES,URINE NEGATIVE (NEGATIVE); LEUKOCYTE ESTERASE,URINE NEGATIVE (NEGATIVE); NITRITE,URINE NEGATIVE (NEGATIVE); PROTEIN,URINE NEGATIVE (NEGATIVE); URINE SPECIFIC GRAVITY 1.004; UROBILINOGEN,URINE NEGATIVE mg/dL (<2.0)
--- NOTE | 2018-08-17 13:05 | RADIOLOGY REPORT (SQ) ---
EXAM DESCRIPTION: CT ABD/PELVIS WITH IV ORAL COMPLETED DATE/TIME: 08/17/2018 12:42 pm REASON FOR STUDY: lower pelvic pain, +n/v, hx femoral hernia repair COMPARISON: 08/06/2018 TECHNIQUE: CT scan of the abdomen and pelvis performed using helical scanning technique with dynamic intravenous contrast injection. No oral contrast. Images reviewed with lung, soft tissue, and bone windows. Reconstructed coronal and sagittal MPR images reviewed. Delayed images for evaluation of the urinary system also acquired. All images stored on PACS. All CT scanners at this facility use dose modulation, iterative reconstruction, and/or weight based d osing when appropriate to reduce radiation dose to as low as reasonably achievable (ALARA). [facility]: Dose Right [facility]: CareDose [facility]: Dose Right [facility]: Teradose 4D [facility]: iBoxPay CONTRAST TYPE AND DOSE: contrast/concentration: Isovue 350.00 mg/ml; Total Contrast Delivered: 48.0 ml; Total Saline Delivered: 65.0 ml Additional oral Gastrografin enteric contrast. RENAL FUNCTION: GFR > 60. RADIATION DOSE: CT Rad equipment meets quality standard of care and radiation dose reduction techniq ues were employed. CTDIvol: 4.8 mGy. DLP: 426 mGy-cm.. LIMITATIONS: None. FINDINGS: LOWER CHEST: No significant findings. No nodules or infiltrates. LIVER: Normal size. No masses. No dilated ducts. SPLEEN: Normal size. No focal lesions. PANCREAS: No masses. No significant calcifications. No adjacent inflammation or peripancreatic fluid collections. Pancreatic duct not dilated. GALLBLADDER: No identified stones by CT criteria. No inflammatory changes to suggest cholecystitis. ADRENAL GLANDS: No significant masses or asymmetry. RIGHT KIDNEY AND URETER: No solid masses. No significant calcifications. No hydronephrosis or hyd roureter. LEFT KIDNEY AND URETER: No solid masses. No significant calcifications. No hydronephrosis or hydr oureter. AORTA AND VESSELS: No aneurysm. No dissection. Renal arteries, SMA, celiac without stenosis. Calcifi c atherosclerosis. RETROPERITONEUM: No retroperitoneal adenopathy, hemorrhage or masses. BOWEL AND PERITONEAL CAVITY: Sigmoid diverticulosis. Small volume perihepatic and low pelvic ascites similar to prior examination. APPENDIX: Normal. PELVIS: No mass. No free fluid. Normal bladder. ABDOMINAL WALL: No masses. Postoperative findings of prior right femoral hernia repair. There is a small, fat containing Spigelian type hernia of the right sergio abdominal wall. BONES: No significant or acute findings. OTHER: No other significant finding. IMPRESSION: 1. Redemonstrated postoperative findings of prior right femoral hernia repair. There is a small, fat containing Spigelian type hernia of the right sergio abdominal wall unchanged from prior. 2. Small volume perihepatic and low pelvic ascites similar to prior examination. 3. Sigmoid diverticulosis without direct findings of acute diverticulitis. TECHNICAL DOCUMENTATION: JOB ID: [id number] Quality ID # [id number]: Final reports with documentation of one or more dose reduction techniques (e.g., Au tomated exposure control, adjustment of the mA and/or kV according to patient size, use of iterative reconstruction technique) 2010 [employer]- All Rights Reserved Reading location - IP/workstation name: [email or web address]
[2018-08-17 13:16] VITALS: BP 158/63
== END 2018-08-17 14:54 | disposition home or self-care (01) ==
LOC: ER 08:09
DX: R11.2 Nausea with vomiting, unspecified (principal); R10.2 Pelvic and perineal pain; R63.0 Anorexia; J44.9 Chronic obstructive pulmonary disease, unspecified; I10 Essential (primary) hypertension; F17.200 Nicotine dependence, unspecified, uncomplicated; K43.9 Ventral hernia without obstruction or gangrene
CPT/HCPCS: 99283; 96361; 96374; 96375; 36415; 83605; 83690; 85025; 80053; 81001; 74018; 74177; J3010; J2405; J7030

== ENCOUNTER 2018-10-04 15:45 | Emergency (ER) | payer MEDICARE, OTHER ==
--- NOTE | 2018-10-04 16:37 | ER Document Report ---
ED Medical Screen (RME) - General Chief Complaint: Abdominal Pain Stated Complaint: ABDOMINAL PAIN Time Seen by Provider: 10/04/18 16:36 Primary Care Provider: BOO OROZCO MD [Primary Care Provider] - Follow up as needed Mode of Arrival: Ambulatory Information source: Patient Notes: 78-year-old female presented to ED for complaint of abdominal pain nausea and vomiting since Wednesday. She states she started with the abdominal pain that started with the nausea and vomiting. She is not able to keep anything down to include water. She does have a history of high blood pressure and COPD smokes half pack a day. States she does not have any history of any surgeries. Abdomen is distended hypoactive bowel sounds tender to palpation. Lungs are clear to auscultation. Patient is alert oriented respirations regular and unlabored. I have greeted and performed a rapid initial assessment of this patient. A comprehensive ED assessment and evaluation of the patient, analysis of test results and completion of medical decision making process will be conducted by an additional ED providers. TRAVEL OUTSIDE OF THE [place] IN LAST 30 DAYS: No - Related Data Allergies/Adverse Reactions: No Known Allergies Allergy (Verified 08/17/18 08:11) Past Medical History - Past Medical History Cardiac Medical History: Reports: Hx Hypertension Pulmonary Medical History: Reports: Hx COPD - No PFTs. Diagnosis by smoking history and possibly x-ray Neurological Medical History: Denies: Hx Seizures Renal/ Medical History: Denies: Hx Peritoneal Dialysis GI Medical History: Reports: Hx Gastritis Psychiatric Medical History: Reports: Hx Depression - anxiety Past Surgical History: Reports: Hx Abdominal Surgery - hernia repair, Hx Bowel Surgery, Hx Herniorrhaphy, Hx Hysterectomy - Immunizations Immunizations up to date: Yes Hx Diphtheria, Pertussis, Tetanus Vaccination: Yes Physical Exam - Vital signs Vitals: Temp Pulse Resp BP Pulse Ox 98.5 F 87 16 156/74 H 98 10/04/18 16:20 10/04/18 16:20 10/04/18 16:20 10/04/18 16:20 10/04/18 16:20 Course - Vital Signs Vital signs: Temp Pulse Resp BP Pulse Ox 98.5 F 87 16 156/74 H 98 10/04/18 16:20 10/04/18 16:20 10/04/18 16:20 10/04/18 16:20 10/04/18 16:20 Doctor's Discharge - Discharge Referrals: BOO OROZCO MD [Primary Care Provider] - Follow up as needed
[2018-10-04] MEDS ORDERED: ONDANSETRON 4 MG TAB.RAPDIS PO ONE (16:38)
[2018-10-04] MEDS ORDERED: NORMAL SALINE 1000 ML 1,000 ML IV ONE (16:38)
--- NOTE | 2018-10-04 17:11 | RADIOLOGY REPORT (SQ) ---
EXAM DESCRIPTION: ACUTE ABDOMEN SERIES COMPLETED DATE/TIME: 10/04/2018 4:58 pm REASON FOR STUDY: abdominal pain nv COMPARISON: None. NUMBER OF VIEWS: Three views. TECHNIQUE: Frontal chest, supine abdomen and upright/decubitus abdomen radiographic images acquired. LIMITATIONS: None. FINDINGS: CHEST: Lungs clear of infiltrates. FREE AIR: None. No abnormal gas collections. BOWEL GAS PATTERN: Nonobstructive pattern. No dilated loops or air fluid levels. CALCIFICATIONS: No suspicious calcifications. HARDWARE: None in the abdomen. SOFT TISSUES: No gross mass or suggestion of organomegaly. BONES: No acute fracture. No worrisome bone lesions. OTHER: No other significant finding. IMPRESSION: NO RADIOGRAPHIC EVIDENCE FOR ACUTE ABDOMINAL DISEASE. TECHNICAL DOCUMENTATION: JOB ID: [id number] [employer]- All Rights Reserved Reading location - IP/workstation name: [email or web address]
[2018-10-04 17:34] LABS: APPEARANCE,URINE CLOUDY; BILIRUBIN,URINE NEGATIVE (NEGATIVE); GLUCOSE, URINE NEGATIVE (NEGATIVE); KETONES,URINE 80 mg/dL (NEGATIVE); LEUKOCYTE ESTERASE,URINE TRACE (NEGATIVE); NITRITE,URINE NEGATIVE (NEGATIVE); PROTEIN,URINE 30 mg/dL (NEGATIVE); URINE SPECIFIC GRAVITY 1.027; UROBILINOGEN,URINE NEGATIVE mg/dL (<2.0)
[2018-10-04 17:38] LABS: COLOR,URINE YELLOW
[2018-10-04 18:19] LABS: ABSOLUTE BASOPHILS # (AUTO) 0.1 10^3/uL (0.0-0.2); ABSOLUTE EOSINOPHILS # (AUTO) 0.1 10^3/uL (0.0-0.6); ABSOLUTE MONOCYTES (AUTO) 0.7 10^3/uL (0.1-1.4); ABSOLUTE NEUT (AUTO) 5.2 10^3/uL (1.7-8.2); BASOPHILS % (AUTO) 0.8 % (0-2); EOSINOPHILS % (AUTO) 0.6 % (0-6); HEMATOCRIT 42.3 % (36.0-47.0); HEMOGLOBIN 14.1 g/dL (12.0-15.5); LYMPHOCYTES % (AUTO) 33.4 % (13-45); MEAN CORPUSCULAR HEMOGLOBIN 31.9 pg (27.0-33.4); MEAN CORPUSCULAR HGB CONC 33.4 g/dL (32.0-36.0); MEAN CORPUSCULAR VOLUME 96 fl (80-97); MONOCYTES % (AUTO) 7.6 % (3-13); PLATELET COUNT 311 10^3/uL (150-450); RED BLOOD COUNT 4.42 10^6/uL (3.72-5.28); RED CELL DISTRIBUTION WIDTH 14.1 % (11.5-14.0); SEGMENTED NEUTROPHILS % (AUTO) 57.6 % (42-78); TOTAL CELLS COUNTED % (AUTO) 100 %; WHITE BLOOD COUNT 9.1 10^3/uL (4.0-10.5)
[2018-10-04 21:11] LABS: ALANINE AMINOTRANSFERASE 17 U/L (9-52); ALBUMIN 4.3 g/dL (3.5-5.0); ALKALINE PHOSPHATASE 58 U/L (38-126); ANION GAP 14 (5-19); ASPARTATE AMINO TRANSFERASE 24 U/L (14-36); BILIRUBIN,DIRECT 0.4 mg/dL (0.0-0.4); BILIRUBIN,TOTAL 0.8 mg/dL (0.2-1.3); BLOOD UREA NITROGEN 18 mg/dL (7-20); CALCIUM 9.5 mg/dL (8.4-10.2); CARBON DIOXIDE 29 mmol/L (22-30); CHLORIDE 96 mmol/L (98-107); GLUCOSE 79 mg/dL (75-110); POTASSIUM 4.3 mmol/L (3.6-5.0); SODIUM 138.9 mmol/L (137-145); TOTAL PROTEIN 7.7 g/dL (6.3-8.2)
[2018-10-04] MEDS ORDERED: PROMETHAZINE HCL INJ 25 MG/1 ML VIAL IV ONE (21:27)
[2018-10-04] MEDS ORDERED: DICYCLOMINE HCL INJ 20 MG/2 ML AMPULE IM ONE (21:27)
--- NOTE | 2018-10-04 22:11 | ER Document Report ---
ED General - General Chief Complaint: Abdominal Pain Stated Complaint: ABDOMINAL PAIN Time Seen by Provider: 10/04/18 16:36 Primary Care Provider: BOO PACHECO MD [Primary Care Provider] - Follow up as needed Mode of Arrival: Ambulatory TRAVEL OUTSIDE OF THE [place] IN LAST 30 DAYS: No - HPI Notes: Patient is a 78-year-old female presents to emergency department for evaluation of abdominal pain, nausea, vomiting. This is been going on since Wednesday. She states she is actually had episodes like this 3 other times in the past several months. It all seemed to have started when she had her hernia repair on July 12. She states that she has had multiple episodes of nonbloody, nonbilious emesis over the last 24 hours. She is still urinating. Her appetite is been diminished since the surgery as well. She denies any hematuria or dysuria. No fevers or chills. Normal bowel movement 3 days ago. - Related Data Allergies/Adverse Reactions: No Known Allergies Allergy (Verified 08/17/18 08:11) Past Medical History - General Information source: Patient - Social History Smoking Status: Current Every Day Smoker Family History: CAD, CVA, Malignancy - Very diffuse history of malignancy. Patient has suicidal ideation: No Patient has homicidal ideation: No - Past Medical History Cardiac Medical History: Reports: Hx Hypertension Pulmonary Medical History: Reports: Hx COPD - No PFTs. Diagnosis by smoking history and possibly x-ray Neurological Medical History: Denies: Hx Seizures Renal/ Medical History: Denies: Hx Peritoneal Dialysis GI Medical History: Reports: Hx Gastritis Psychiatric Medical History: Reports: Hx Depression - anxiety Past Surgical History: Reports: Hx Abdominal Surgery - hernia repair, Hx Bowel Surgery, Hx Herniorrhaphy, Hx Hysterectomy - Immunizations Immunizations up to date: Yes Hx Diphtheria, Pertussis, Tetanus Vaccination: Yes Review of Systems - Review of Systems Constitutional: No symptoms reported EENT: No symptoms reported Cardiovascular: No symptoms reported Respiratory: No symptoms reported Gastrointestinal: See HPI Genitourinary: No symptoms reported Musculoskeletal: No symptoms reported Skin: No symptoms reported Neurological/Psychological: No symptoms reported Physical Exam - Vital signs Vitals: Temp Pulse Resp BP Pulse Ox 98.5 F 87 16 156/74 H 98 10/04/18 16:20 10/04/18 16:20 10/04/18 16:20 10/04/18 16:20 10/04/18 16:20 - Notes Notes: Vital signs reviewed, please refer to chart. Head is normocephalic, atraumatic. Pupils equal round, reactive to light. Neck is supple without meningismus. Heart is regular rate and rhythm. Lungs are clear to auscultation bilaterally. Abdomen is soft, nontender, normoactive bowel sounds throughout. Extremities without cyanosis, clubbing. Posterior calves are nontender. Peripheral pulses are equal. Skin is warm and dry. Patient is awake, alert, neurological exam is nonfocal. Course - Re-evaluation Re-evalutation: 10/04/18 22:09 Patient presents to the emergency department for evaluation of nausea, vomiting, abdominal pain. She states she has had multiple episodes of this. She has foll ow-up with Dr. Pacheco, who performed her surgery. She actually has a colonoscopy scheduled with him next week. She was continuing to feel nauseated after initial orders as placed by triage. She also asked if she could get something to help her sleep and for her abdominal cramping. She was medicated here with Bentyl and low-dose of IV Phenergan. Her laboratory investigations were largely unremarkable. I strongly encouraged her to continue follow-up with her surgeon or primary care physician. She voiced understanding to this. We will send her home with more Zofran and she is to return to the ED with worsening. - Vital Signs Vital signs: Temp Pulse Resp BP Pulse Ox 98.7 F 82 16 150/63 H 100 10/04/18 20:23 10/04/18 20:23 10/04/18 20:23 10/04/18 20:23 10/04/18 20:23 - Laboratory Result Diagrams: 10/04/18 18:04 10/04/18 18:04 Laboratory results interpreted by me: 10/04/18 10/04/18 10/04/18 16:40 18:04 18:04 RDW 14.1 H Chloride 96 L Urine Protein 30 H Urine Ketones 80 H Urine Blood MODERATE H Ur Leukocyte Esterase TRACE H Discharge - Discharge Clinical Impression: Generalized abdominal pain Nausea and vomiting Qualifiers: Vomiting type: unspecified Vomiting Intractability: non-intractable Qualified Code(s): R11.2 - Nausea with vomiting, unspecified Condition: Stable Disposition: HOME, SELF-CARE Instructions: Abdominal Pain ([facility]), Vomiting ([facility]) Additional Instructions: Stay hydrated with small, frequent sips of fluids. Zofran as needed for nausea. Follow-up with primary care and your surgeon this week. Return to the emergency department with worsening or new concerning symptoms. Referrals: BOO PACHECO MD [Primary Care Provider] - Follow up as needed
[2018-10-04 22:21] VITALS: BP 126/53
== END 2018-10-04 22:24 | disposition home or self-care (01) ==
LOC: ER 15:45
DX: R10.84 Generalized abdominal pain (principal); R11.2 Nausea with vomiting, unspecified; F17.200 Nicotine dependence, unspecified, uncomplicated; Z90.710 Acquired absence of both cervix and uterus
CPT/HCPCS: 99284; 96372; 96361; 96374; 36415; 83690; 85025; 80053; 81001; 74022; J0500; A9270; J2550; J7030; S0119